=== PATIENT | female | born 1960 | race Caucasian/White ===

== ENCOUNTER → 2017-07-23 14:15 | Outpatient (CLI) | payer OTHER, SELFPAY ==
--- NOTE | 2017-07-23 14:19 | HPBI_ITS ---
MAMMOGRAPHY - BILATERAL SCREENING 3-D VICTORINO SYNTHESIS REASON FOR EXAM: Female, 57 years old. Bilateral Screening 3-D tomosynthesis PERTINENT HISTORY: History of benign breast biopsy.. TECHNIQUE: 2-D mammograms and 3-D Victorino synthesis of the breast (s) were performed. CAD was performed. COMPARISON: 07/21/2016 FINDINGS: The breast composition is heterogeneously dense that can obscure small breast masses. Scattered benign calcifications are seen. No dense spiculated masses or suspicious microcalcifications are identified. No architectural distortion is identified. There is no skin thickening or retraction. There has been no significant change since the prior study. There has been no significant change since the prior study. HPBI/SCREENING MAMM (CAD), BILAT IMPRESSION: No mammographic signs of malignancy. Routine yearly mammograms recommended. ASSESSMENT CATEGORY: BIRADS Category 2: Benign. A letter regarding these results will be sent to the patient by the facility within 30 days. FOLLOW UP RECOMMENDATION: Yearly follow up mammogram recommended. (A) Approximately 10% of breast cancers are not detected by mammography. A normal mammogram should not delay biopsy of a clinically suspicious abnormality. Electronically Signed: Feliberto Villareal MD at 15:44 EDT , Service support ,
== END ==
PROVIDERS: Family Provider Family Medicine Geriatric Medicine; PCP Family Medicine Geriatric Medicine; Visit Provider Obstetrics & Gynecology Gynecology
DX: Z12.31 Encounter for screening mammogram for malignant neoplasm of breast (principal)
CPT/HCPCS: 77063; 77067

== ENCOUNTER → 2017-10-24 15:29 | Outpatient (CLI) | payer OTHER, SELFPAY ==
--- NOTE | 2017-10-24 15:33 | VDUE_ITS ---
Reason For Study: RUE swelling Right Proximal Right jugular vein is spontaneous, widely patent, phasic, with no intraluminal echogenicity noted. Right subclavian vein is spontaneous, widely patent, phasic, with no intraluminal echogenicity noted. Right Lower Arm Right radial vein is compressible. Right ulnar vein is compressible. Right Arm Right axillary vein is spontaneous, patent, phasic, competent, compressible and demonstrates augmentation. Right brachial vein is compressible. Right cephalic vein is compressible. Right basilic vein is compressible. < Interpretation Summary Deep veins of the right upper extremity are patent and compressible segmentally. There is no evidence of deep vein thrombosis. The superficial veins of the right upper extremity, the basilic and cephalic veins, are patent and compressible. There is no evidence of right upper extremity superficial thrombophlebitis involving the veins imaged. Ordering Physician: Delta Rodriguez Referring Physician: Delta Rodriguez Chi Performed By: Tasia Hunt RVT ??? Reason For Study: RUE swelling < Interpretation Summary Ordering Physician: Delta Rodriguez Referring Physician: Delta Rodriguez Chi Performed By: Tasia Hunt RVT
== END ==
PROVIDERS: Family Provider Family Medicine Geriatric Medicine; PCP Family Medicine Geriatric Medicine; Visit Provider Family Medicine Geriatric Medicine
DX: R60.0 Localized edema (principal)
CPT/HCPCS: 93971

== ENCOUNTER → 2018-01-18 11:08 | Outpatient (CLI) | payer OTHER, SELFPAY ==
[2018-01-21 10:52] LABS: Hep C Antibodies <0.1 s/co ratio (0.0-0.9)
== END ==
PROVIDERS: Family Provider Family Medicine Geriatric Medicine; PCP Family Medicine Geriatric Medicine; Visit Provider Family Medicine Geriatric Medicine
DX: Z00.00 Encounter for general adult medical examination without abnormal findings (principal); E55.9 Vitamin D deficiency, unspecified; E78.4 Other hyperlipidemia; Z13.89 Encounter for screening for other disorder
CPT/HCPCS: 86803

== ENCOUNTER 2018-02-02 13:08 | Emergency (ER) | payer OTHER, SELFPAY ==
[2018-02-02 13:11] VITALS: BP 128/104; PULSE 93; RESP 16; TEMP 36.9; O2SAT 94; BMI 22.2
--- NOTE | 2018-02-02 13:22 | RAD_ITS ---
STUDY: X-RAY - LUMBAR SPINE REASON FOR EXAM: Female, 57 years old. Fell off ladder. Pain hematoma on the left back. TECHNIQUE: 5 view(s) of the lumbar spine were obtained. COMPARISON: None FINDINGS: Normal lumbar lordosis. There is no substantial scoliosis. There is a normal alignment of the vertebrae. Normal vertebral bodies and endplates. Normal disc space heights. There is no evidence of acute fracture or loss of vertebral axial height. There is no demonstrated spondylolysis of the pars interarticulares. The soft tissue structures are unremarkable. RAD/L/S Spine Min 4 Views IMPRESSION: Normal x-ray examination of the lumbar spine. Electronically Signed: Feliciano Sosa DO at 13:53 EDT Tel [phone], Service support ,
--- NOTE | 2018-02-02 13:45 | ED.RN ---
pt ambulated to the restroom. gait was slow, but balanced. waiting for x-ray to result. bert rivers rn
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
--- NOTE | 2018-02-02 14:54 | ED.DEP ---
ED Disposition - Plan for ED Patient: Chief Complaint: Fall Instructions: ED Mechanical Fall Prescriptions: Naproxen [Naprosyn] 500 mg PO BID PRN #20 tab Referrals: Delta Rodriguez Chi, MD [Primary Care Provider] -
== END 2018-02-02 16:28 | disposition home or self-care (01) ==
LOC: ED 13:52
PROVIDERS: Emergency Provider Emergency Medicine; Family Provider Family Medicine Geriatric Medicine; PCP Family Medicine Geriatric Medicine
DX: S30.0XXA Contusion of lower back and pelvis, initial encounter (principal); W11.XXXA Fall on and from ladder, initial encounter; Y93.9 Activity, unspecified; Y92.9 Unspecified place or not applicable
CPT/HCPCS: 72110; 99284

== ENCOUNTER → 2018-02-13 16:03 | Outpatient (CLI) | payer OTHER, SELFPAY ==
--- NOTE | 2018-02-13 16:05 | RAD_ITS ---
STUDY: X-RAY - LEFT FOOT CLINICAL: Female, 57 years old. Pain. TECHNIQUE: 3 view(s) of the foot. COMPARISON: None. FINDINGS: Normal talus, calcaneus, and tarsal bones. Normal visualized subtalar, talonavicular, calcaneocuboid, tarsal and tarsometatarsal articulations. Normal metatarsi. Normal metatarsophalangeal joint of the great toe. Normal tibial and fibular sesamoid bones. Normal interphalangeal joint of the great toe. Normal phalanges of the great toe. Normal second through fifth metatarsophalangeal joints. Normal interphalangeal joints and phalanges of the lesser toes. The soft tissue structures are unremarkable. There is no demonstrated fracture. RAD/Foot min 3 Views IMPRESSION: Normal x-ray examination of the foot. Electronically Signed: Edinson Barrett MD at 16:58 EDT , Service support ,
--- NOTE | 2018-02-13 16:10 | RAD_ITS ---
STUDY: X-RAY - RIGHT FOOT CLINICAL: Female, 57 years old. Pain. TECHNIQUE: 3 view(s) of the foot. COMPARISON: None. FINDINGS: Normal talus, calcaneus, and tarsal bones. Normal visualized subtalar, talonavicular, calcaneocuboid, tarsal and tarsometatarsal articulations. Normal metatarsi. Normal metatarsophalangeal joint of the great toe. Normal tibial and fibular sesamoid bones. Normal interphalangeal joint of the great toe. Normal phalanges of the great toe. Normal second through fifth metatarsophalangeal joints. Normal interphalangeal joints and phalanges of the lesser toes. The soft tissue structures are unremarkable. There is no demonstrated fracture. RAD/Foot min 3 Views IMPRESSION: Normal x-ray examination of the foot. Electronically Signed: Edinson Barrett MD at 15:56 EDT , Service support ,
== END ==
PROVIDERS: Family Provider Family Medicine Geriatric Medicine; PCP Family Medicine Geriatric Medicine; Referring Provider Family Medicine Geriatric Medicine; Visit Provider Family Medicine Geriatric Medicine
DX: M25.572 Pain in left ankle and joints of left foot (principal); M25.571 Pain in right ankle and joints of right foot
CPT/HCPCS: 73630

== ENCOUNTER → 2018-03-19 16:34 | Outpatient (CLI) | payer OTHER, SELFPAY | PROVIDERS: Family Provider Family Medicine Geriatric Medicine; PCP Family Medicine Geriatric Medicine; Referring Provider Family Medicine Geriatric Medicine; Visit Provider Family Medicine Geriatric Medicine | DX: R68.83 Chills (without fever) (principal) | CPT/HCPCS: 87633 ==

== ENCOUNTER → 2018-09-13 | Outpatient (CLI) | payer OTHER, SELFPAY ==
--- NOTE | 2018-09-12 17:25 | BI_ITS ---
MAMMOGRAPHY - BILATERAL SCREENING REASON FOR EXAM: Female, 58 years old. Routine annual screening examination. PERTINENT HISTORY: Non-contributory. Remote left excisional breast biopsy. TECHNIQUE: Digital bilateral breast gregorio (3D mammographic acquisition) in the CC and MLO projections. 2-D mediolateral oblique (MLO) and craniocaudad (CC) views of both breasts were obtained. CAD: Full Field Digital Mammography with Computer Added Detection was performed. COMPARISON: Comparison is made with prior study dated July 23, 2017 and July 21, 2016. FINDINGS: Breast Composition: The breasts are heterogeneously dense, which may obscure small masses. There are no dominant masses or suspicious calcifications. Stable macrocalcifications in both breasts. No other significant abnormalities are identified. There has been no significant change since the prior study. BI/SCREENING MAMM (CAD), BILAT IMPRESSION: Stable bilateral screening mammogram. Yearly follow-up mammogram recommended. (A) ASSESSMENT CATEGORY: BIRADS Category 2: Benign. A letter regarding these results will be sent to the patient by the facility within 30 days. Approximately 10% of breast cancers are not detected by mammography. A normal mammogram should not delay biopsy of a clinically suspicious abnormality. [id number] Electronically Signed: Brijesh Barney, at 8:51 EDT , Service support ,
== END | disposition home or self-care (01) ==
LOC: OPBI 07:33
PROVIDERS: Family Provider Family Medicine Geriatric Medicine; PCP Family Medicine Geriatric Medicine; Referring Provider Obstetrics & Gynecology Gynecology; Visit Provider Obstetrics & Gynecology Gynecology
DX: Z12.31 Encounter for screening mammogram for malignant neoplasm of breast (principal)
CPT/HCPCS: 77063; 77067

== ENCOUNTER → 2018-10-14 | Outpatient (CLI) | payer OTHER, SELFPAY | END | disposition home or self-care (01) | LOC: PSN 16:36 | PROVIDERS: Family Provider Family Medicine Geriatric Medicine; PCP Family Medicine Geriatric Medicine; Referring Provider Family Medicine Geriatric Medicine; Visit Provider Family Medicine Geriatric Medicine | DX: R68.83 Chills (without fever) (principal) | CPT/HCPCS: 87633 ==

== ENCOUNTER → 2018-10-24 | Outpatient (CLI) | payer OTHER, SELFPAY ==
[2018-10-24 17:22] LABS: Absolute Neutrophil Count 4.6 X10^3/uL (2.0-7.7); Basophil# 0.02 X10^3/uL; Basophil% 0.3 % (0-1); Eosinophil# 0.09 X10^3/uL; Eosinophils% 1.2 % (0-5); Hematocrit 41.3 % (37-47); Hemoglobin 13.7 g/dl (12.0-15.0); Lymphocyte % 31.3 % (19-41); Mean Corp Hgb Conc 33.2 g/gl (32-36); Mean Corpuscular Hgb 28.8 pg (27.0-32.0); Mean Corpuscular Volume 86.9 fL (81-99); Mean Platelet Vol. 9.5 fl (6.2-12.0); Monocyte# 0.46 X10^3/uL; Neutrophil # 4.64 X10^3/uL (2.7-7.7); Neutrophil % 60.3 % (47-70); Platelet Count 329 K/mm3 (150-450); RBC Distribution Width SD 41.4 fl (35.1-43.9); Red Blood Count 4.75 M/mm3 (4.2-5.4); White Blood Count 7.7 K/mm3 (4.4-11.0)
[2018-10-24 17:24] LABS: POSITIVE COUNT NO; POSITIVE DIFFERENTIAL NO; POSITIVE MORPHOLOGY NO
[2018-10-24 17:46] LABS: Anion Gap 8 (5-15); BUN 18 mg/dL (7-18); BUN/Creat Ratio 22.6 RATIO (10-20); Calcium,Total 8.7 mg/dL (8.5-10.1); Chloride 103 mmol/L (98-107); EST Glomerular Filtration Rate 79 mL/min (>60); Est Glom Filt Rate - Afr Amer 96 mL/min (>60); Glucose 128 mg/dL (74-106); Potassium 3.4 mmol/L (3.5-5.1); Sodium Level 140 mmol/L (136-145); Thyroid Stim Hormone (TSH) 0.74 uIU/mL (0.358-3.74)
== END | disposition home or self-care (01) ==
LOC: POLAB3 15:52
PROVIDERS: Family Provider Family Medicine Geriatric Medicine; PCP Family Medicine Geriatric Medicine; Visit Provider Family Medicine Geriatric Medicine
DX: R53.83 Other fatigue (principal)
CPT/HCPCS: 36415; 80048; 84443; 85025

== ENCOUNTER → 2018-11-02 | Outpatient (CLI) | payer OTHER, SELFPAY ==
[2018-11-02 12:32] LABS: Anion Gap 2 (5-15); BUN 17 mg/dL (7-18); BUN/Creat Ratio 25.1 RATIO (10-20); Calcium,Total 9.3 mg/dL (8.5-10.1); Chloride 104 mmol/L (98-107); Creatinine, Serum 0.68 mg/dL (0.55-1.02); EST Glomerular Filtration Rate 96 mL/min (>60); Est Glom Filt Rate - Afr Amer 116 mL/min (>60); Glucose 91 mg/dL (74-106); Potassium 3.8 mmol/L (3.5-5.1); Sodium Level 137 mmol/L (136-145)
== END | disposition home or self-care (01) ==
LOC: LAB.FUTURE 12:02
PROVIDERS: Family Provider Family Medicine Geriatric Medicine; PCP Family Medicine Geriatric Medicine; Referring Provider Family Medicine Geriatric Medicine; Visit Provider Family Medicine Geriatric Medicine
DX: E87.6 Hypokalemia (principal)
CPT/HCPCS: 36415; 80048

== ENCOUNTER → 2019-09-16 14:24 | Outpatient (CLI) | payer OTHER, SELFPAY ==
--- NOTE | 2019-09-16 14:27 | BI_ITS ---
MAMMOGRAPHY - BILATERAL SCREENING REASON FOR EXAM: Female, 59 years old. Routine annual screening examination. PERTINENT HISTORY: Non-contributory. Remote left excisional breast biopsy. TECHNIQUE: Digital bilateral breast victorino (3D mammographic acquisition) in the CC and MLO projections. 2-D mediolateral oblique (MLO) and craniocaudad (CC) views of both breasts were obtained. CAD: Full Field Digital Mammography with Computer Added Detection was performed. COMPARISON: Comparison is made with prior examination dated September 12, 2018 and July 23, 2017. FINDINGS: Breast Composition: The breasts are heterogeneously dense, which may obscure small masses. There are no dominant masses or suspicious calcifications. I suspect a 1.2 cm well-defined nodule in the lateral probable upper outer quadrant of the right breast. Correlation with ultrasound is recommended for further evaluation. No other significant abnormalities are identified. BI/SCREEN MAMM (CAD) W/VICTORINO BILAT IMPRESSION: I suspect a 1.2 cm well-defined nodule in the lateral most likely upper outer quadrant of the right breast as described. Correlation with ultrasound is recommended. ASSESSMENT CATEGORY: BIRADS Category 0: Incomplete. Need additional imaging evaluation. A letter regarding these results will be sent to the patient by the facility within 30 days. Approximately 10% of breast cancers are not detected by mammography. A normal mammogram should not delay biopsy of a clinically suspicious abnormality. [id number] Electronically Signed: Brijesh Barney, at 9:21 EDT , Service support ,
== END ==
PROVIDERS: PCP Family Medicine Geriatric Medicine; Referring Provider Obstetrics & Gynecology Gynecology; Visit Provider Obstetrics & Gynecology Gynecology
DX: Z12.31 Encounter for screening mammogram for malignant neoplasm of breast (principal)
CPT/HCPCS: 77063; 77067

== ENCOUNTER → 2019-09-25 13:17 | Outpatient (CLI) | payer OTHER, SELFPAY ==
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
== END ==
PROVIDERS: PCP Family Medicine Geriatric Medicine; Referring Provider Obstetrics & Gynecology Gynecology; Visit Provider Obstetrics & Gynecology Gynecology
DX: R92.8 Other abnormal and inconclusive findings on diagnostic imaging of breast (principal)
CPT/HCPCS: 76642

== ENCOUNTER 2020-05-29 18:32 | Emergency (ER) | payer OTHER, SELFPAY ==
[2020-05-29 18:33] VITALS: BP 132/98; PULSE 94; RESP 18; TEMP 36.7; O2SAT 97; BMI 25.3
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
[2020-05-29] MEDS: HYDROmorphone 1 MG/ML Syringe IV (18:56)
[2020-05-29] MEDS: Ondansetron 4 MG/2 ML Vial IV (18:56)
[2020-05-29 19:05] LABS: Absolute Lymphocyte Count 3.02 X10^3/uL (0.83-4.51); Absolute Neutrophil Count 3.8 X10^3/uL (2.0-7.7); Basophil# 0.04 X10^3/uL; Basophil% 0.5 % (0-1); Eosinophil# 0.14 X10^3/uL; Eosinophils% 1.9 % (0-5); Hemoglobin 13.2 g/dL (12.0-15.0); Lymphocyte # 3.02 X10^3/ul (4.0); Lymphocyte % 40.3 % (19-41); Mean Corp Hgb Conc 32.2 g/dL (32-36); Mean Corpuscular Hgb 28.2 pg (27.0-32.0); Mean Corpuscular Volume 87.6 fL (81-99); Mean Platelet Vol. 8.9 fl (6.2-12.0); Monocyte# 0.38 X10^3/uL; Monocyte% 5.1 % (0-10); NRBC Flagged by Analyzer 0 % (0-5); Neutrophil # 3.83 X10^3/uL (2.7-7.7); Neutrophil % 51.1 % (47-70); Platelet Count 297 K/mm3 (150-450); RBC Distribution Width CV 12.8 % (11.6-14.6); RBC Distribution Width SD 40.9 fl (35.1-43.9); Red Blood Count 4.68 M/mm3 (4.2-5.4); White Blood Count 7.5 K/mm3 (4.4-11.0)
[2020-05-29 19:15] LABS: International Normalized Ratio 0.9; Prothrombin Time (Protime)PT. 11.9 SECONDS (11.7-14.9)
[2020-05-29 19:16] LABS: Partial Thromboplast Time 24.1 Seconds (24.1-36.2)
[2020-05-29 19:22] LABS: ALB/GLOB Ratio 1.1 RATIO (0.9-2.4); AST(SGOT) 48 U/L (15-37); Alanine Aminotransfer ALT/SGPT 46 U/L (13-56); Albumin, Serum 3.6 g/dL (3.2-5.0); Alkaline Phosphatase 74 U/L (45-117); Anion Gap 6 (5-15); BUN 15 mg/dL (7-18); BUN/Creat Ratio 23.2 RATIO (10-20); Calcium,Total 8.5 mg/dL (8.5-10.1); Chloride 105 mmol/L (98-107); Creatinine, Serum 0.65 mg/dL (0.55-1.02); EST Glomerular Filtration Rate 100 mL/min (>60); Est Glom Filt Rate - Afr Amer 121 mL/min (>60); Estimated Creatinine Clearance 84.74 ml/min; Globulin 3.2 g/dL (2.2-4.2); Glucose 130 mg/dL (74-106); Lipase 114 U/L (73-393); Potassium 3.3 mmol/L (3.5-5.1); Protein, Total 6.8 g/dL (6.4-8.2); Sodium Level 140 mmol/L (136-145)
[2020-05-29] MEDS: Diphth,Pertuss(Acell),Tet Vac 0.5 ML Vial IM (19:37)
[2020-05-29 19:50] VITALS: BP 143/91; PULSE 106; RESP 18; O2SAT 94
[2020-05-29 20:00] VITALS: BP 146/93; PULSE 106; RESP 19; O2SAT 95
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
== END 2020-05-29 21:27 | disposition home or self-care (01) ==
LOC: ED 19:59
PROVIDERS: Emergency Provider Emergency Medicine; PCP Family Medicine Geriatric Medicine
DX: R07.89 Other chest pain (principal); S60.222A Contusion of left hand, initial encounter; S81.812A Laceration without foreign body, left lower leg, initial encounter; V89.2XXA Person injured in unspecified motor-vehicle accident, traffic, initial encounter; Y93.9 Activity, unspecified; Y92.9 Unspecified place or not applicable; Z87.891 Personal history of nicotine dependence
CPT/HCPCS: 70450; 71260; 72125; 73130; 74177; 80053; 83690; 84484; 85025; 85610; 85730; 90715; 93005; 96361; 96374; 96375; 99285; J7030; Q9967; A4216; J2405

== ENCOUNTER 2020-06-25 10:30 | Outpatient (RCR) | payer OTHER, SELFPAY ==
[2020-06-18 09:14] VITALS: BP 120/78; PULSE 83; RESP 18; TEMP 36.5; BMI 22.8
[2020-06-18 11:20] VITALS: BP 120/72
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
[2020-06-25 10:52] VITALS: BP 117/76; PULSE 91; RESP 16; TEMP 36.6; BMI 22.8
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
== END 2020-06-27 23:59 ==
LOC: WC 10:30
PROVIDERS: PCP Family Medicine Geriatric Medicine; Referring Provider Family Medicine Geriatric Medicine; Visit Provider Family Medicine
DX: L97.812 Non-pressure chronic ulcer of other part of right lower leg with fat layer exposed (principal); S80.811S Abrasion, right lower leg, sequela; V89.2XXS Person injured in unspecified motor-vehicle accident, traffic, sequela; I87.2 Venous insufficiency (chronic) (peripheral); Z79.1 Long term (current) use of non-steroidal anti-inflammatories (NSAID)
CPT/HCPCS: 11042; 99203; G0463

== ENCOUNTER 2020-07-16 10:30 | Outpatient (RCR) | payer OTHER, SELFPAY ==
[2020-06-28 00:38] VITALS: BP 117/76; PULSE 91; RESP 16; TEMP 36.6
[2020-07-02 10:39] VITALS: BP 130/80; PULSE 88; RESP 16; TEMP 36.7; BMI 22.8
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
[2020-07-09 10:53] VITALS: BP 136/82; PULSE 81; RESP 18; TEMP 36.1; BMI 22.8
[2020-07-09 11:33] VITALS: BP 136/82
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
[2020-07-16 10:44] VITALS: BP 121/71; PULSE 85; RESP 16; TEMP 36.4; BMI 22.8
--- NOTE | 2020-07-16 10:46 | WC ---
apligraph left intact
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
== END 2020-07-28 23:59 ==
LOC: WC 10:30
PROVIDERS: PCP Family Medicine Geriatric Medicine; Referring Provider Family Medicine Geriatric Medicine; Visit Provider Family Medicine
DX: I87.311 Chronic venous hypertension (idiopathic) with ulcer of right lower extremity (principal); L97.812 Non-pressure chronic ulcer of other part of right lower leg with fat layer exposed; S80.811S Abrasion, right lower leg, sequela; V89.2XXS Person injured in unspecified motor-vehicle accident, traffic, sequela; I87.2 Venous insufficiency (chronic) (peripheral); Z79.1 Long term (current) use of non-steroidal anti-inflammatories (NSAID)
CPT/HCPCS: 11042; 15271; Q4101

== ENCOUNTER 2020-08-13 10:30 | Outpatient (RCR) | payer OTHER, SELFPAY ==
[2020-07-29 00:44] VITALS: BP 121/71; PULSE 85; RESP 16; TEMP 36.4
[2020-07-30 10:29] VITALS: BP 122/80; PULSE 88; TEMP 36.1; BMI 22.8
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
[2020-08-13 10:51] VITALS: BP 149/94; PULSE 85; RESP 18; TEMP 36.8; BMI 22.8
--- NOTE | 2020-08-13 11:27 | WC ---
healed photo taken adaptic and gauze applied secured with tape
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
== END 2020-08-13 11:32 | disposition home or self-care (01) ==
LOC: WC 10:30
PROVIDERS: PCP Family Medicine Geriatric Medicine; Referring Provider Family Medicine Geriatric Medicine; Visit Provider Family Medicine
DX: I87.311 Chronic venous hypertension (idiopathic) with ulcer of right lower extremity (principal); L97.812 Non-pressure chronic ulcer of other part of right lower leg with fat layer exposed; I87.2 Venous insufficiency (chronic) (peripheral); S80.811S Abrasion, right lower leg, sequela; V89.2XXS Person injured in unspecified motor-vehicle accident, traffic, sequela; Z79.1 Long term (current) use of non-steroidal anti-inflammatories (NSAID)
CPT/HCPCS: 15271; 99213; Q4101; G0463

== ENCOUNTER → 2020-10-21 10:19 | Outpatient (CLI) | payer OTHER, SELFPAY ==
--- NOTE | 2020-10-21 10:25 | BI_ITS ---
MAMMOGRAPHY - BILATERAL SCREENING 3-D TOMOSYNTHESIS REASON FOR EXAM: Female, 60 years old. SCREENING PERTINENT HISTORY: No significant family history. TECHNIQUE: 2-D mammograms and 3-D Tomosynthesis of the breast (s) were performed. CAD was performed. COMPARISON: 09/16/2019 FINDINGS: The breast composition is of heterogeneous fibroglandular tissue Scattered benign calcifications are seen bilaterally. No dense spiculated masses or suspicious microcalcifications are identified. No architectural distortion is identified. There is no skin thickening or nipple retraction. There has been no significant change since the prior study of 09/16/2019. BI/SCRN MAMM (CAD)W/VICTORINO BILAT IMPRESSION: No mammographic signs of malignancy. Routine yearly mammograms recommended. ASSESSMENT CATEGORY: BIRADS Category 1: Negative. A letter regarding these results will be sent to the patient by the facility within 30 days. FOLLOW UP RECOMMENDATION: Yearly follow up mammogram recommended. (A) Approximately 10% of breast cancers are not detected by mammography. A normal mammogram should not delay biopsy of a clinically suspicious abnormality. Electronically Signed: Cade Castañeda, at 12:08 EDT Tel , Service support ,
== END ==
PROVIDERS: PCP Family Medicine Geriatric Medicine; Referring Provider Obstetrics & Gynecology Gynecology; Visit Provider Obstetrics & Gynecology Gynecology
DX: Z12.31 Encounter for screening mammogram for malignant neoplasm of breast (principal)
CPT/HCPCS: 77063; 77067

== ENCOUNTER → 2020-11-08 15:17 | Outpatient (CLI) | payer OTHER, SELFPAY ==
--- NOTE | 2020-11-08 16:45 | RAD_ITS ---
STUDY: X-RAY - ABDOMEN/PELVIS REASON FOR EXAM: Female, 60 years old. Diarrhea. TECHNIQUE: AP supine and upright views of the abdomen and pelvis. COMPARISON: None. FINDINGS: Normal visualized lung bases. There is an unremarkable bowel gas pattern. No small bowel dilatation or evidence of distended colon. There is no demonstrated free abdominal air. The visualized liver, spleen and kidneys are grossly normal in size and morphology. Normal soft tissue structures. Normal visualized osseous structures. RAD/Abd Inc Decub and/or Erect IMPRESSION: Normal x-ray examination of the abdomen and pelvis. Electronically Signed: Feliciano Sosa DO at 16:50 EDT Tel [phone], Service support ,
[2020-11-08 17:06] LABS: Absolute Lymphocyte Count 2.04 X10^3/uL (0.83-4.51); Basophil# 0.02 X10^3/uL; Basophil% 0.4 % (0-1); Eosinophil# 0.05 X10^3/uL; Eosinophils% 0.9 % (0-5); Hematocrit 45.1 % (37-47); Hemoglobin 14.4 g/dL (12.0-15.0); Lymphocyte # 2.04 X10^3/ul (0.83-4.51); Lymphocyte % 37.2 % (19-41); Mean Corp Hgb Conc 31.9 g/dL (32-36); Mean Corpuscular Hgb 28.2 pg (27.0-32.0); Mean Corpuscular Volume 88.4 fL (81-99); Mean Platelet Vol. 9.8 fl (6.2-12.0); Monocyte# 0.34 X10^3/uL; Monocyte% 6.2 % (0-10); NRBC Flagged by Analyzer 0 % (0-5); Neutrophil # 3.01 X10^3/uL (2.7-7.7); Neutrophil % 54.9 % (47-70); Platelet Count 316 K/mm3 (150-450); RBC Distribution Width CV 12.9 % (11.6-14.6); RBC Distribution Width SD 42.2 fl (35.1-43.9); White Blood Count 5.5 K/mm3 (4.4-11.0)
[2020-11-08 17:19] LABS: Anion Gap 5 (5-15); BUN 8 mg/dL (7-18); BUN/Creat Ratio 13.4 RATIO (10-20); Calcium,Total 9.2 mg/dL (8.5-10.1); Chloride 104 mmol/L (98-107); EST Glomerular Filtration Rate 110 mL/min (>60); Est Glom Filt Rate - Afr Amer 133 mL/min (>60); Glucose 85 mg/dL (74-106); Potassium 3.8 mmol/L (3.5-5.1); Sodium Level 139 mmol/L (136-145)
== END ==
LOC: POLAB3 15:18 → RAD 16:43
PROVIDERS: PCP Family Medicine Geriatric Medicine; Referring Provider Family Medicine Geriatric Medicine; Visit Provider Family Medicine Geriatric Medicine
DX: R19.7 Diarrhea, unspecified (principal); R53.83 Other fatigue
CPT/HCPCS: 36415; 74019; 80048; 85025

== ENCOUNTER → 2020-11-09 09:42 | Outpatient (CLI) | payer OTHER, SELFPAY | PROVIDERS: PCP Family Medicine Geriatric Medicine; Referring Provider Family Medicine Geriatric Medicine; Visit Provider Family Medicine Geriatric Medicine | DX: R06.89 Other abnormalities of breathing (principal) | CPT/HCPCS: 87426; C9803 ==

== ENCOUNTER → 2021-01-07 08:51 | Outpatient (CLI) | payer OTHER, SELFPAY | PROVIDERS: PCP Family Medicine Geriatric Medicine; Referring Provider Family Medicine Geriatric Medicine; Visit Provider Family Medicine Geriatric Medicine | DX: R68.83 Chills (without fever) (principal) | CPT/HCPCS: 87635; C9803; U0005; U0003 ==

== ENCOUNTER → 2021-01-28 | Outpatient (CLI) | payer OTHER, SELFPAY ==
--- NOTE | 2021-01-28 09:30 | LIP_PTH ---
PATIENT: LARS CASILLAS LOC: [facility] U#:[id number] AGE/SX: 60/F ROOM: RE01/28/[address]: Dr. Graciela Garner MD : 1960 BED: DIS: 01/28/2021 SPEC #: [id number] RECD: 01/28/21 10:56 STATUS: JAS REGina #: [id number] SHIRLEY: 01/28/21 09:[address]: Graciela Garner DEPT: SURGICAL PATHOLOGY RECD BY: Carole Lu ENTERED: 01/28/21 12:48 SP TYPE: LIPOMA OTHR DR: Dr. Delta Rodriguez MD Tissues: Soft tissues, NOS Procedures: Surgery Specimen Level III HEADER OPERATION: Excision of lipoma of back PRE-OP DIAGNOSIS: Lipoma on back TISSUE SUBMITTED: Lipoma on back MICROSCOPIC DIAGNOSIS Soft tissue mass of back, excision: Mature adipose tissue consistent with lipoma. AM:dee 01/31/2021 MICROSCOPIC DESCRIPTION Slides are reviewed. GROSS DESCRIPTION Received in fixative is one container labeled with the patient's name and designated lipoma on back. The specimen consists of an irregular piece of adipose tissue measuring 6.5 x 5 x 2 cm. The external surface is inked. Sections reveal yellow adipose cut surfaces without areas of hemorrhage, necrosis or cystic degeneration. Net Development Manager sections are submitted in four cassettes. / SJ:dee 01/28/21 TC:1 CPT: 11965
== END | disposition home or self-care (01) ==
LOC: LABSPEC 11:17
PROVIDERS: PCP Family Medicine Geriatric Medicine; Referring Provider Surgery; Visit Provider Surgery
DX: D17.1 Benign lipomatous neoplasm of skin and subcutaneous tissue of trunk (principal)
CPT/HCPCS: 88304

== ENCOUNTER 2021-11-23 15:13 | Outpatient (CLI) | payer OTHER, SELFPAY ==
--- NOTE | 2021-11-23 15:16 | BI_ITS ---
MAMMOGRAPHY - BILATERAL SCREENING REASON FOR EXAM: Female, 61 years old. Routine annual screening examination. PERTINENT HISTORY: Non-contributory. Remote left excisional breast biopsy. TECHNIQUE: Digital bilateral breast victorino (3D mammographic acquisition) in the CC and MLO projections. 2-D mediolateral oblique (MLO) and craniocaudad (CC) views of both breasts were obtained. CAD: Full Field Digital Mammography with Computer Added Detection was performed. COMPARISON: Comparison is made with prior study dated 10/21/2020 and 09/16/2019 FINDINGS: Breast Composition: The breasts are heterogeneously dense, which may obscure small masses. There are no dominant masses or suspicious calcifications. No other significant abnormalities are identified. There has been no significant change since the prior study. BI/SCRN MAMM (CAD)W/VICTORINO BILAT IMPRESSION: Stable bilateral screening mammogram. Yearly follow-up mammogram recommended. (A) ASSESSMENT CATEGORY: BIRADS Category 1: Negative. A letter regarding these results will be sent to the patient by the facility within 30 days. Approximately 10% of breast cancers are not detected by mammography. A normal mammogram should not delay biopsy of a clinically suspicious abnormality. [id number] Electronically Signed: Brijesh Barney MD at 8:12 EDT ,
== END 2021-11-23 23:59 | disposition home or self-care (01) ==
LOC: OPBI 15:14
PROVIDERS: PCP Family Medicine Geriatric Medicine; Visit Provider Obstetrics & Gynecology Gynecology
DX: Z12.31 Encounter for screening mammogram for malignant neoplasm of breast (principal)
CPT/HCPCS: 77063; 77067

== ENCOUNTER → 2022-03-02 | Outpatient (CLI) | payer OTHER, SELFPAY ==
[2022-03-02 09:19] LABS: Hematocrit 43.5 % (37-47); Hemoglobin 14.2 g/dL (12.0-15.0); Mean Corp Hgb Conc 32.6 g/dL (32-36); Mean Corpuscular Hgb 28.7 pg (27.0-32.0); Mean Corpuscular Volume 87.9 fL (81-99); Mean Platelet Vol. 9.9 fl (6.2-12.0); Platelet Count 277 K/mm3 (150-450); RBC Distribution Width CV 12.9 % (11.6-14.6); RBC Distribution Width SD 41.5 fl (35.1-43.9); Red Blood Count 4.95 M/mm3 (4.2-5.4); White Blood Count 4.5 K/mm3 (4.4-11.0)
[2022-03-02 09:56] LABS: Anion Gap 6 (5-15); BUN 15 mg/dL (7-18); BUN/Creat Ratio 26.6 RATIO (10-20); Chloride 104 mmol/L (98-107); Creatinine, Serum 0.56 mg/dL (0.55-1.02); EST Glomerular Filtration Rate 117 mL/min (>60); Est Glom Filt Rate - Afr Amer 141 mL/min (>60); Glucose 85 mg/dL (74-106); Potassium 3.6 mmol/L (3.5-5.1); Sodium Level 138 mmol/L (136-145)
== END | disposition home or self-care (01) ==
PROVIDERS: PCP Family Medicine Geriatric Medicine; Referring Provider Surgery; Visit Provider Surgery
DX: Z01.810 Encounter for preprocedural cardiovascular examination (principal); Z01.812 Encounter for preprocedural laboratory examination
CPT/HCPCS: 36415; 80048; 85027; 93005

== ENCOUNTER → 2022-06-06 | Outpatient (CLI) | payer OTHER, SELFPAY | END | disposition home or self-care (01) | LOC: PSN 12:42 | PROVIDERS: PCP Family Medicine Geriatric Medicine; Referring Provider Family Medicine Geriatric Medicine; Visit Provider Family Medicine Geriatric Medicine | DX: R68.83 Chills (without fever) (principal); Z20.822 Contact with and (suspected) exposure to COVID-19 | CPT/HCPCS: 87635; 87804; 87807; C9803; U0003; U0005 ==

== ENCOUNTER → 2022-08-10 | Outpatient (CLI) | payer OTHER, SELFPAY ==
--- NOTE | 2022-08-10 13:46 | EKG12_ITS ---
Test Reason : PRE OP Blood Pressure : / mmHG Vent. Rate : 072 BPM Atrial Rate : 073 BPM P-R Int : 134 ms QRS Dur : 074 ms QT Int : 400 ms P-R-T Axes : 070 079 076 degrees QTc Int : 438 ms Normal sinus rhythm Normal ECG Confirmed by SHADIA BERRIOS ([id number]), movie editor FREIDA SHARIF ([id number]) on 08/15/2022 7:38:38 AM Referred By: SIERRA Confirmed By:SHADIA BERRIOS
== END | disposition home or self-care (01) ==
PROVIDERS: PCP Family Medicine Geriatric Medicine; Visit Provider Surgery
DX: Z01.810 Encounter for preprocedural cardiovascular examination (principal); Z01.812 Encounter for preprocedural laboratory examination
CPT/HCPCS: 93005

== ENCOUNTER → 2022-12-14 | Outpatient (CLI) | payer OTHER, SELFPAY ==
--- NOTE | 2022-12-14 13:16 | BI_ITS ---
MAMMOGRAPHY - BILATERAL SCREENING REASON FOR EXAM: Female, 62 years old. Routine annual screening examination. PERTINENT HISTORY: Non-contributory. Remote left excisional breast biopsy. TECHNIQUE: Digital bilateral breast victorino (3D mammographic acquisition) in the CC and MLO projections. 2-D mediolateral oblique (MLO) and craniocaudad (CC) views of both breasts were obtained. CAD: Full Field Digital Mammography with Computer Added Detection was performed. COMPARISON: Comparison is made with prior study dated November 23, 2021 and October 21, 2000. FINDINGS: Breast Composition: The breasts are heterogeneously dense, which may obscure small masses. There are no dominant masses or suspicious calcifications. Focal calcification is seen in the upper-outer quadrant of the right breast. No other significant abnormalities are identified. There has been no significant change since the prior study. BI/SCRN MAMM (CAD)W/VICTORINO BILAT IMPRESSION: Stable bilateral screening mammogram. Yearly follow-up mammogram recommended. (A) ASSESSMENT CATEGORY: BIRADS Category 2: Benign. A letter regarding these results will be sent to the patient by the facility within 30 days. Approximately 10% of breast cancers are not detected by mammography. A normal mammogram should not delay biopsy of a clinically suspicious abnormality. [id number] Electronically Signed: Brijesh Barney MD at 8:21 EDT ,
--- NOTE | 2022-12-14 13:18 | BD_ITS ---
STUDY: DUAL ENERGY X-RAY ABSORPTIOMETRY / DXA REASON FOR EXAM: Female, 62 years old. V76.12ScreeningBONE DENSITY REASON FOR EXAM TECHNIQUE: Bone Mineral Density (BMD) measurements of lumbar spine and bilateral hips were obtained. COMPARISON: None. FINDINGS: Lumbar Spine (L1-L4): g/cm2 (0.725) / T-score (-2.9) / Z-score (-1.5) Findings are suggestive of osteoporosis with a high fracture risk. Left Femur Total: g/cm2 (0.644) / T-score (-2.4) / Z-score (-1.5) Left Femoral Neck: g/cm2 (0.541) / T-score (-2.8) / Z-score (-1.5) Right Femur Total: g/cm2 (0.656) / T-score (-2.3) / Z-score (-1.4) Right Femoral Neck: g/cm2 (0.538) / T-score (-2.8) / Z-score (-1.5) BD/Dexa Bone Density Study IMPRESSION: The patient is considered osteoporotic as outlined below according to World Brock Organization (WHO) criteria with a high fracture risk. Reference Information: The T-score is the number of standard deviations above or below the standard which is normal for young adults at their peak bone mineral density. The World Health Organization (WHO) interprets the T-scores as follows: Above -1 Normal bone density Between -1 and -2.5 Osteopenia Equal to / or below -2.5 Osteoporosis As a practical clinical guideline, osteopenia may be graded as follows: Mild -1 through -1.5 Moderate -1.6 through -2.0 Severe -2.1 through -2.4 The Z-score is the number of standard deviations above or below age-matched controls. A Z-score of less than -1.5 would be considered abnormal. References: 1. NIH Osteoporosis and Related Bone Diseases www osteo.org 2. International Society for Clinical Densitometry www iscd.org 3. National Osteoporosis Foundation www nof.org Electronically Signed: Brijesh Barney MD at 12:31 EDT ,
== END | disposition home or self-care (01) ==
LOC: OPBD 13:13
PROVIDERS: PCP Family Medicine Geriatric Medicine; Referring Provider Obstetrics & Gynecology Gynecology; Visit Provider Obstetrics & Gynecology Gynecology
DX: Z12.31 Encounter for screening mammogram for malignant neoplasm of breast (principal); Z13.820 Encounter for screening for osteoporosis
CPT/HCPCS: 77063; 77067; 77080

== ENCOUNTER 2023-06-13 15:01 | Outpatient (CLI) | payer OTHER, SELFPAY ==
[2023-06-13 15:18] VITALS: BP 131/63; PULSE 73; RESP 16; TEMP 36.7; O2SAT 97; BMI 23.2
[2023-06-13] MEDS: 0.9% Normal Saline (1000mL) 1,000 ML 999 ML IV (15:29)
[2023-06-13 15:53] LABS: Absolute Lymphocyte Count 2.33 X10^3/uL (0.83-4.51); Absolute Neutrophil Count 2.8 X10^3/uL (2.0-7.7); Basophil# 0.04 X10^3/uL; Basophil% 0.7 % (0-1); Eosinophil# 0.11 X10^3/uL; Hemoglobin 12.7 g/dL (12.0-15.0); Lymphocyte # 2.33 X10^3/ul (0.83-4.51); Lymphocyte % 41.8 % (19-41); Mean Corp Hgb Conc 31.8 g/dL (32-36); Mean Corpuscular Hgb 27.8 pg (27.0-32.0); Mean Corpuscular Volume 87.5 fL (81-99); Mean Platelet Vol. 9.7 fl (6.2-12.0); Monocyte# 0.29 X10^3/uL; Monocyte% 5.2 % (0-10); NRBC Flagged by Analyzer 0 % (0-5); Neutrophil # 2.78 X10^3/uL (2.7-7.7); Neutrophil % 49.9 % (47-70); Platelet Count 299 K/mm3 (150-450); RBC Distribution Width SD 41.1 fl (35.1-43.9); Red Blood Count 4.57 M/mm3 (4.2-5.4); White Blood Count 5.6 K/mm3 (4.4-11.0)
[2023-06-13 15:56] LABS: Anion Gap 5 (5-15); BUN 17 mg/dL (7-18); BUN/Creat Ratio 25.4 RATIO (10-20); Calcium,Total 9.1 mg/dL (8.5-10.1); Chloride 108 mmol/L (98-107); Creatinine, Serum 0.67 mg/dL (0.55-1.02); EST Glomerular Filtration Rate 95 mL/min (>60); Est Glom Filt Rate - Afr Amer 115 mL/min (>60); Estimated Creatinine Clearance 63.34 ml/min; Glucose 147 mg/dL (74-106); Potassium 3.9 mmol/L (3.5-5.1); Sodium Level 141 mmol/L (136-145)
[2023-06-13 16:44] VITALS: BP 127/80; PULSE 87; RESP 16; TEMP 36.2; O2SAT 100
--- OUTSIDE RECORDS SUMMARY | 2023-06-13 18:38 | XMS RPT_ITS | CCD ---
Author Name Unknown Address [email or web address] [place] [address] Organization [facility] Care Team Providers Care Water Gas Operator Name Role Phone SAMEER GOODWIN, DR FREEMAN Primary Care Unavailable ANDREY GOODWIN, PILO Attending Unavailable Problems Problem Classification Problem Date Documented Da te Episodic/Chronic Other screening for suspected conditions (not mental disorders or infectious disease) (2 sources) Encounter for screening for malignant neoplasm of cervix; Translations: [Encounter for screening for malignant neoplasm of cervix] Onset: 11-14-2022 Episodic Results Test Name Value Interpretation Reference Range Facil ity Encounters Encounter Date Encounter Type Care Provider Facility Start: 11-14-2022 End: 11-19-[address] LYDIA ESTRELLA MD Facility:B Start: 11-14-2022 End: 11-19-2022 Encounter for gynecological examination (general) (routine) without abnormal findings PILO BALDERAS MD Facility:B Start: 07-30-2018 End: 07-31-2018 Patient encounter procedure [facility] Payers Date Payer Category Payer Private Health Insurance [id number] 1960 Unknown [id number] Summary Purpose Family History No Family History Records FoundNo Family History Records Found Advance Directives No Advanced Directives Records FoundNo Advanced Directives Records Found Additional Source Comments INFORMATION SOURCE (unrecogn ized section and content) DATE CREATED AUTHOR AUTHOR'S ORGANIZ ATION 11/24/2022 [facility] FOR RECORDS PERTAINING TO PATIENTS WHO ARE OR HAVE BEEN ENROLLED IN A CHEMICAL DEPENDENCY/SUBSTANCEABUSE PROGRAM, SOME INFORMATION MAY BE OMITTED. This clinical summary was aggregated from multiple sources. Caution should be exercised in using it in the provision of clinical care. This summary normalizes information from multiple sources, and as a consequence, information in this document may materially change the coding, format and clinical context of patient data. In addition, data may be omitted in some cases. CLINICAL DECISIONS SHOULD BE BASED ON THE PRIMARY CLINICAL RECORDS. [facility]. provides no warranty or guarantee of the accuracy or completeness of information in this document.
[2023-06-14 12:52] LABS: Hemoglobin A1c 5.8 % (3.8-5.6)
== END 2023-06-13 15:02 | disposition home or self-care (01) ==
LOC: MEDOUTP 15:04
PROVIDERS: PCP Family Medicine Geriatric Medicine; Referring Provider Family Medicine Geriatric Medicine; Visit Provider Family Medicine Geriatric Medicine
DX: E86.0 Dehydration (principal); E16.2 Hypoglycemia, unspecified
CPT/HCPCS: 96360; 80048; 83036; 85025; J7030

== ENCOUNTER 2023-06-14 09:29 | Outpatient (CLI) | payer OTHER, SELFPAY ==
[2023-06-14 09:32] VITALS: BP 133/73; PULSE 81; RESP 16; TEMP 35.9
[2023-06-14] MEDS: 0.9% NaCl Peripheral Flush Adult/Peds IV (09:40)
[2023-06-14] MEDS: 0.9% Normal Saline (1000mL) 1,000 ML 999 ML IV (10:01)
[2023-06-14 11:11] VITALS: BP 132/75; PULSE 70; RESP 16; TEMP 35.9; O2SAT 100
== END 2023-06-14 09:30 | disposition home or self-care (01) ==
LOC: MEDOUTP 09:29
PROVIDERS: PCP Family Medicine Geriatric Medicine; Referring Provider Family Medicine Geriatric Medicine; Visit Provider Family Medicine Geriatric Medicine
DX: E86.0 Dehydration (principal)
CPT/HCPCS: 96360; J7030; A4216

== ENCOUNTER → 2023-06-14 | Outpatient (CLI) | payer OTHER, SELFPAY ==
--- OUTSIDE RECORDS SUMMARY | 2023-06-14 09:23 | XMS RPT_ITS | CCD ---
Author Name Unknown Address [address] [place] [address] Organization [facility] Care Team Providers Care Collar Stay Fuser Tender Name Role Phone SAMEER GOODWIN, DR FREEMAN [...] Start: 07-30-2018 End: 07-31-[address] [facility] Payers Date Payer Category Payer Private Health Insurance [id number] 1960 Unknown [id number] Summary Purpose Family History No Family History Records FoundNo Family History Records Found Advance Directives No Advanced Directives Records FoundNo Advanced Directives Records Found Additional Source Comments INFORMATION SOURCE (unrecogn ized section and content) DATE CREATED AUTHOR AUTHOR'S ORGANIZ ATION 11/24/2022 [facility] [place] [place] FOR RECORDS PERTAINING TO PATIENTS WHO ARE [...] BE BASED ON THE PRIMARY CLINICAL RECORDS. [facility]. provides no warranty or guarantee of the accuracy or completeness of information in this document.
== END | disposition home or self-care (01) ==
LOC: PSN 09:00
PROVIDERS: PCP Family Medicine Geriatric Medicine; Referring Provider Family Medicine Geriatric Medicine; Visit Provider Family Medicine Geriatric Medicine
DX: R68.83 Chills (without fever) (principal)
CPT/HCPCS: 87631

== ENCOUNTER → 2023-12-19 | Outpatient (CLI) | payer OTHER, SELFPAY ==
--- NOTE | 2023-12-19 12:25 | BI_ITS ---
MAMMOGRAPHY - BILATERAL SCREENING REASON FOR EXAM: Female, 63 years old. Routine annual screening examination. PERTINENT HISTORY: Non-contributory. Remote left excisional breast biopsy. TECHNIQUE: Digital bilateral breast victorino (3D mammographic acquisition) in the CC and MLO projections. 2-D mediolateral oblique (MLO) and craniocaudad (CC) views of both breasts were obtained. CAD: Full Field Digital Mammography with Computer Added Detection was performed. COMPARISON: Comparison is made with prior study dated December 14, 2022 and November 23, 2021. FINDINGS: Breast Composition: The breasts are heterogeneously dense, which may obscure small masses. There are no dominant masses or suspicious calcifications. A tissue clip marker is seen in the upper deep lateral aspect of the left breast in keeping with prior biopsy. No other significant abnormalities are identified. There has been no significant change since the prior study. BI/SCRN MAMM (CAD)W/VICTORINO BILAT IMPRESSION: Stable bilateral screening mammogram. Yearly follow-up mammogram recommended. (A) ASSESSMENT CATEGORY: BIRADS Category 2: Benign. A letter regarding these results will be sent to the patient by the facility within 30 days. Approximately 10% of breast cancers are not detected by mammography. A normal mammogram should not delay biopsy of a clinically suspicious abnormality. [id number] Electronically Signed: Brijesh Barney MD at 13:38 EDT ,
== END | disposition home or self-care (01) ==
LOC: OPBI 12:22
PROVIDERS: PCP Family Medicine Geriatric Medicine; Referring Provider Obstetrics & Gynecology Gynecology; Visit Provider Obstetrics & Gynecology Gynecology
DX: Z01.419 Encounter for gynecological examination (general) (routine) without abnormal findings (principal); Z12.31 Encounter for screening mammogram for malignant neoplasm of breast
CPT/HCPCS: 77063; 77067

== ENCOUNTER → 2024-12-23 | Outpatient (CLI) | payer OTHER, SELFPAY | END | disposition home or self-care (01) | LOC: POLAB3 17:11 | PROVIDERS: PCP Family Medicine Geriatric Medicine; Visit Provider Family Medicine Geriatric Medicine | DX: G43.909 Migraine, unspecified, not intractable, without status migrainosus (principal); L03.221 Cellulitis of neck; R53.83 Other fatigue ==

== ENCOUNTER → 2025-01-09 | Outpatient (CLI) | payer OTHER, SELFPAY ==
--- NOTE | 2025-01-09 08:05 | BI_ITS ---
EXAM: SCRN MAMM (CAD)W/VICTORINO BILAT DATE: 01/09/2025 CLINICAL HISTORY: F, Age 64 y/o , SCREEN TECHNIQUE: Procedure Code: [id number] Modality: MG Procedure: SCRN MAMM (CAD)W/VICTORINO BILAT COMPARISON: Prior exam(s) dated 12/19/2023, 12/14/2022, 11/23/2021. FINDINGS: TISSUE DENSITY: The breasts are heterogeneously dense, which may obscure small masses. The mammogram demonstrates that the patient has dense breasts. Supplemental screening with whole breast ultrasound or MRI may be considered for further evaluation. Bilateral Breast Mammographic Findings: No significant masses, calcifications or other abnormalities are identified. BI/SCRN MAMM (CAD)W/VICTORINO BILAT IMPRESSION: There is no mammographic evidence of malignancy. OVERALL FINAL ASSESSMENT BI-RADS 1: NEGATIVE. RECOMMENDATION: Routine annual follow-up in 1 Year A letter with findings and recommendations will be mailed to the patient. Reading Location: [id number]
--- OUTSIDE RECORDS SUMMARY | 2025-01-09 08:25 | XMS RPT_ITS | CCD ---
Author Organization [facility] Care Team Providers Care Air C[employer] Agent Name Role Phone Dr. Delta Estrella Chi Primary Care Provider [phone] Dr. Umm Shaikh Attending Provider Dr. Chace Davidson Referring Provider SAMEER GOODWIN, DR FREEMAN Primary Care Unavailable ANDREY GOODWIN, KALANI Attending Patrick ESTRELLA MD, DR FREEMAN Primary Care Physician EMORY GOODWIN, LAILA Álvarez Attending Unavail able SAMEER GOODWIN, DR FREEMAN Primary Care Unavailable SAMEER GOODWIN, DR FREEMAN Primary Care Unavailable ANDREY GOODWIN, KALANI Attending Patrick Estrella MD, Dr. Delta Quick Primary Care Provider Sameer GOODWIN, Dr. Delta Quick Attending Provider Delta Estrella Chi Attending Delta Teixeira Chi Primary Care Unavailable Allergies Allergy Classification Reported Allergen(s) Allergy Type Date of Onset Reaction(s) Facility (11 sources) Doxycycline; Translations: [doxycycline] Drug Allergy 1 nausea and vomiting, projectile vomiting [facility] (2 sources) Meperidine; Translations: [meperidine] Drug Allergy rash [facility] (2 sources) seasonal enviromental Allergy to substance [facility] (1 source) Doxycycline Drug Allergy 4 [facility] Repository Medications Current Medications Medication Drug Class(es) Dates Sig (Normalized) Sig (Original) ergocalciferol 1.25 mg oral capsule (9 sources) Provitamin D2 Compound Start: 06-18-2020 Ergocalciferol (Vitamin D2) 50,000 UNIT capsule Active 81658 U PO Q7D June 18, 2020 1:00am Evenity 105 mg/1.17 mL subcutaneous solution (2 sources) Start: 12-19-2024 inject 1 dose by subcutaneous injection every month Evenity 105 mg/1.17 mL subcutaneous solution Dose : 210 mg =, Subcutaneous, qmonth, # 2.34 mL, 0 Refill(s) Start Date: 12/19/24 Status: Ordered Medication Dispense Status: Completed Quantity: 2.34 Unit: mL Total Allowed Fills: 1 Fills Dispensed: 0 famotidine 20 mg oral tablet (2 sources) Histamine-2 Receptor Antagonist Start: 11-20-2023 famotidine 20 mg oral tablet Dose : 20 mg = 1 tab(s), Oral, BID, # 180 tab(s), 0 Refill(s) Start Date: 11/20/23 Status: Ordered Medication Dispense Status: Completed Quantity: 180.0 Unit: tab(s) Total Allowed Fills: 1 Fills Dispensed: 0 glucosamine sulfate 500 mg oral tablet (4 sources) Start: 06-13-2023 take 1 tablet by mouth once daily Glucosamine Sulfate (Glucosamine) 500 mg tablet Active 500 mg PO DAILY June 13, 2023 1:00am administer with a meal ibuprofen 600 mg oral tablet (2 sources) Nonsteroidal Anti-inflammatory Drug Start: 12-17-2015 Motrin 600 mg oral tablet Dose : 600 mg = 1 tab(s), Oral, q6h, PRN as needed for pain, # 20 tab(s), 0 Refill(s) Start Date: 12/17/15 Status: Ordered Medication Dispense Status: Completed Quantity: 20.0 Unit: tab(s) Total Allowed Fills: 1 Fills Dispensed: 0 mecobalamin (3 sources) Start: 06-13-2023 inject 45257 ug by intramuscular injection every month Mecobalamin (Vitamin B12) Active 30249 MCG IM .monthly June 13, 2023 12:00am Mecobalamin (Vitamin B12) 10,000 mcg recon soln (1 source) Start: 06-13-2023 inject 23884 ug by intramuscular injection every month Mecobalamin (Vitamin B12) 10,000 mcg recon soln Active 78779 ug IM .monthly June 13, 2023 1:00am melatonin 5 mg oral tablet (2 sources) Start: 12-14-2015 melatonin 5 mg oral tablet Dose : 5 mg = 1 tab(s), Oral, qHS, PRN for insomnia, 0 Refill(s) Start Date: 12/14/15 Status: Ordered Medication Dispense Status: Completed Total Allowed Fills: 1 Fills Dispensed: 0 Multivitamin (Daily Multiple Vitamin) 1 EACH tablet (9 sources) Start: 02-02-2018 take 1 tablet by mouth once daily Multivitamin (Daily Multiple Vitamin) 1 EACH tablet Active 1 NMA PO DAILY February 02, 2018 12:00am Start: 02-02-2018 take 1 tablet by richie th once daily Multivitamin (Daily Multiple Vitamin) 1 EACH tablet Active 1 EACH PO DAILY February 01, 2018 11:00pm Start: 02-02-2018 take 1 tablet by richie th once daily Multivitamin (Daily Multiple Vitamin) 1 EACH tablet Active 1 EACH PO DAILY February 02, 2018 12:00am [employer]'s Daily Multivitamin (2 sources) Start: 12-14-2015 take 1 tablet by mouth once daily [employer]'s Daily Multivitamin 1 tab, Oral, qDay, 0 Refill(s) Start Date: 12/14/15 Status: Ordered Medication Dispense Status: Completed Total Allowed Fills: 1 Fills Dispensed: 0 omeprazole 40 mg delayed release oral capsule (4 sources) Proton Pump Inhibitor Start: 06-13-2023 Omeprazole 40 mg capsule,delayed release(DR/EC) Active 20 mg PO TWICE A DAY June 13, 2023 1:00am Start: 06-13-2023 take 20 mg by mouth twice sen y Omeprazole Active 20 MG PO TWICE A DAY June 13, 2023 12:00am vitamin b12 1 mg/ml injectable solution (2 sources) Vitamin B12 Start: 12-19-2024 cyanocobalamin 1000 mcg/mL injectable solution INJECT 1 ML ONCE A MONTH INJECTION Start Date: 12/19/24 Status: Ordered Medication Dispense Status: Completed Total Allowed Fills: 1 Fills Dispensed: 0 Completed/Discontinued Medications Medication Drug Class(es) Dates Sig (Normalized) Sig (Original) cyclobenzaprine hydrochloride 10 mg oral tablet (9 sources) Muscle Relaxant Start: 05-29-2020 End: 06-18-2020 take 1 tablet by mouth three times daily as needed for muscle spasms Cyclobenzaprine 10 MG tablet Discontinued 10 mg PO THREE TIMES A DAY as needed for Muscle Spasm 20 0 May 29, 2020 1:00am June 18, 2020 10:15am naproxen 500 mg oral tablet (20 sources) Nonsteroidal Anti-inflammatory Drug Start: 02-02-2018 End: 06-13-2023 take 1 tablet by mouth twice daily Naproxen 500 MG tablet Discontinued 500 mg PO TWICE A DAY June 18, 2020 1:00am June 13, 2023 4:25pm Problems Problem Classification Problem Date Documented Date Episodic/Chronic Disorders of lipid metabolism (2 sources) Hypercholesterolemia 12-14-2015 Chronic Esophageal disorders (2 sources) Gastroesophageal reflux disease 12-14-2015 Chronic Headache; including migraine (1 source) Migraine, unspecified, not intractable, without status migrainosus; Translations: [Migraine, unspecified, not intractable, without status migrainosus] Onset: 12-31-19 Chronic Headache; including migraine (1 source) Headache; Translations: [Headache, unspecified] Onset: 12-20-19 Episodic Headache; including migraine (1 source) Headache; including migraine; Translations: [Headache, unspecified] Onset: 12-20-19 Open wounds of extremities (9 sources) Open wound of lower leg with complication; Translations: [Unspecified open wound, right lower leg, subsequent encounter] 06-18-2020 Episodic Osteoporosis (2 sources) Osteoporosis 01-03-2023 Chronic Other and unspecified benign neoplasm (9 sources) Lipoma of back; Translations: [Benign lipomatous neoplasm of skin and subcutaneous tissue of trunk] 02-07-2021 Episodic Comment on above: s/p excision Other diseases of veins and lymphatics (8 sources) Chronic peripheral venous hypertension with lower extremity complication; Translations: [Chronic venous hypertension (idiopathic) with ulcer of right lower extremity] 07-09-2020 Chronic Other diseases of veins and lymphatics (1 source) Chronic peripheral venous hypertension; Translations: [Chronic venous hypertension (idiopathic) with ulcer of right lower extremity] 07-09-2020 Chronic Other diseases of veins and lymphatics (9 sources) Venous insufficiency of leg; Translations: [Venous insufficiency (chronic) (peripheral)] 07-02-2020 Episodic Other gastrointestinal disorders (2 sources) Irritable bowel syndrome 12-14-2015 Chronic Other screening for suspected conditions (not mental disorders or infectious disease) (2 sources) Encounter for screening for malignant neoplasm of cervix; Translations: [Encounter for screening for malignant neoplasm of cervix] Onset: 11-15-19 Episodic Results Test Name Value Interpretation Reference Range Facility Laboratory - Microbiology an d Antimicrobial susceptibilityOrdered By: Delta Estrella on 06-14-2023 SARS-CoV-2 (COVID-19) RNA RADHA+probe Ql (Unsp spec) [facility] Absolute lymphocyte countOrd ered By: Delta Estrella on 06-13-2023 Lymphocytes Auto (Unsp spec) [#/Vol] 2.33 10*3/uL 0.83-4.51 [facility] Automated lymphocyte count a s percentage of total leukocytesOrdered By: Delta Estrella on 06-13-2023 Lymphocytes/100 WBC Auto (Unsp spec) 41.8 % 19-41 [facility] Basophil percentageOrdered B y: Delta Estrella on 06-13-2023 Basophils/100 WBC (Bld) 0.7 % 0-1 [facility] Chloride [Moles/Vol] 108 mmol/L 98-107 [facility] Eosinophils/100 WBC (Bld) 2.0 % 0-5 [facility] Glucose [Mass/Vol] 147 mg/dL 74-106 [facility] Comment on above: Fasting Glucose resu lt greater than or equal to 126 mg/dL suggests DIABETES MELLITUS per A.D.A. criteria. Hemoglobin (Bld) [Mass/Vol] 12.7 g/dL 12.0-15.0 [facility] Monocytes/100 WBC (Bld) 5.2 % 0-10 [facility] Neutrophils (Bld) [#/Vol] 2.8 10*3/uL 2.0-7.7 [facility] Neutrophils/100 WBC (Bld) 49.9 % 47-70 [facility] Potassium [Moles/Vol] 3.9 mmol/L 3.5-5.[address] [facility] Sodium [Moles/Vol] 141 mmol/L 136-145 [facility] WBC (Bld) [#/Vol] 5.6 10*3/uL 4.4-11.0 [facility] Determination of erythrocyte mean corpuscular volume (MCV)Ordered By: Delta Estrella on 06-13-2023 MCV (RBC) [Entitic vol] 87.5 fL 81-99 [facility] Erythrocyte distribution wid th ratioOrdered By: Delta Estrella on 06-13-2023 Erythrocyte distribution width (RBC) [Ratio] 13.0 % 11.6-14.6 [facility] Erythrocyte distribution wid th standard deviationOrdered By: Delta Estrella on 06-13-2023 Erythrocyte distribution width (RBC) [Entitic vol] 41.1 fL 35.1-43.9 [facility] Hematocrit Auto (Bld) [Volum e fraction]Ordered By: Delta Estrella on 06-13-2023 Hematocrit (Bld) [Volume fraction] 40.0 % 37-47 [facility] Immature granulocytes/100 WB C Auto (Bld)Ordered By: Delta Estrella 06-13-2023 Immature granulocytes/100 WBC (Bld) 0.400 % 0.0-0.9 [facility] Comment on above: IG% - Immature Granu locytes (promyelocytes, myelocytes and metamyelocytes) > 1% indicates that a LEFT SHIFT is Present. Laboratory - Chemistry and C hemistry - challengeOrdered By: Delta Estrella 06-13-2023 CO2 [Moles/Vol] 28.0 mmol/L 21.0-32.0 [facility] Urea nitrogen/Creatinine [Mass ratio] 25.4 mg/mg 10-20 [facility] Laboratory - Hematology and Cell countsOrdered By: Delta Estrella 06-13-2023 MCH (RBC) [Entitic mass] 27.8 pg 27.0-32.0 [facility] MCHC (RBC) [Mass/Vol] 31.8 g/dL 32-[address] [facility] Nucleated RBC/100 WBC (Bld) [Ratio] 0 % 0-5 [facility] Platelet mean volume (Bld) [Entitic vol] 9.7 fL 6.2-12.0 [facility] Platelets (Bld) [#/Vol] 299 10*3/uL 150-450 [facility] No Panel InformationOrdered By: Delta Estrella on 06-13-2023 Estimated Creatinine Clearance Calc 63.34 ml/min [facility] Estimated GFR (MDRD) Amer 115 mL/min >60 [facility] Comment on above: GFR Calc Estimated GFR (MDRD) Non-Af Amer 95 mL/min >60 [facility] Comment on above: Non- GFR Calc RBC Auto (Bld) [#/Vol]Ordere d By: Delta Estrella on 06-13-2023 RBC (Bld) [#/Vol] 4.57 10*6/uL 4.2-5.4 [facility] Serum or plasma calcium greyson urement (mass/volume)Ordered By: Delta Estrella on 06-13-2023 Calcium [Mass/Vol] 9.1 mg/dL 8.5-10.1 [facility] Serum or plasma creatinine m easurement (mass/volume)Ordered By: Delta Estrella on 06-13-2023 Creatinine [Mass/Vol] 0.67 mg/dL 0.55-1.[address] [facility] Comment on above: The validity of the calculated GFR & GFRAA in patients over 70 years has not been determined. Clinical correlation is essential. Serum or plasma urea nitroge n measurement (mass/volume)Ordered By: Delta Estrella on 06-13-2023 Urea nitrogen [Mass/Vol] 17 mg/dL 7-18 [facility] Thin prep Papanicolaou smear with manual screeningOrdered By: Delta Estrella on 06-13-2023 Thin prep Papanicolaou smear with manual screening 5 5-15 [facility] Whole blood hemoglobin A1c/t otal hemoglobin ratio (mass fraction)Ordered By: Delta Estrella on 06-13-2023 HbA1c (Bld) [Mass fraction] 5.8 % 3.8-5.6 [facility] Comment on above: Normal < 5.7 % Predi abetic 5.7 - 6.4 % Diabetic >or= 6.5 % Please note range changes. [employer] Cytology Reporton 2022 [employer] Cytology Report . Pathology Reports Accession: Collected Date/Time: Received Date/Time: Pathologist: [id number] 11/14/2022 15:37 EDT 11/15/2022 18:00 EDT [employer] Cytology Report SPECIMEN: Specimen Description: Liquid Prep w/ HPV Specimen: Cervical/Endocervic al Screening or Diagnostic: Screening RELEVANT HISTORY: LMP: menopause SPECIMEN ADEQUACY: SATISFACTORY FOR EVALUATION LIMITED BY SCANT CELLULARITY Endocervical/Transf ormational zone component presence can not be determined due to marked atrophy INTERPRETATION/RESU LTS: NEGATIVE FOR INTRAEPITHELIAL LESION OR MALIGNANCY HIGH RISK HPV TESTING: Event Code Result HPV Interp See Interp HPVN HPV Interp Text: High Risk HPV Typing: NEGATIVE HPV types 16, 18, 31, 33, 35, 39, 45, 51, 52, 56, 58, 59, 66 and 68 DNA were undetectable or below the pre-set threshold. The juan miguel High-Risk HPV DNA Test is not intended for use as a screening device for Pap normal women under age 30 and is not intended to substitute for regular Pap screening. The juan miguel High-Risk HPV DNA Test is designed to augment existing methods for the detection of cervical disease and should be used in conjunction with clinical information derived from other diagnostic and screening tests, physical examinations and full medical history in accordance with appropriate patient management procedures. NOTE: A negative result does not preclude the presence of HPV infection because results depend on adequate specimen collection, absence of inhibitors and sufficient DNA to be detected. As of: 11/23/22 13:49 EDT COMMENT: This Pap Test was successfully processed and evaluated with the assistance of the [employer] Test Imaging System. Pathology Reports Accession: Collected Date/Time: Received Date/Time: Pathologist: [id number] 11/14/2022 15:37 EDT 11/15/2022 18:00 EDT Electronically Signed by Pathology report verified by [facility] Screened by: [place] Electronically signed by Tanika SANTOS (ASCP) Sign-Out Date: 11/23/2022 13:49 Performing Lab: [facility], [address] [place] [address] Pathology Dept Disclaimer The Pap test is a screening test for cervical cancer. As evidenced by published data, it is subject to both inherent false negative and false positive results. Your patient's results should be interpreted in context with pertinent clinical history including gynecological examination. Normal [facility] ([place]) HPVon 11-23-2022 HPV Interp Normal See Interp HPVN [facility] [place] Comment on above: Order Comment: Order placed by AP_HPV_ORDER rule from [id number] Result Comment: High Risk HPV Typing: NEGATIVE HPV types 16, 18, 31, 33, 35, 39, 45, 51, 52, 56, 58, 59, 66 and 68 DNA were undetectable or below the pre-set threshold. The juan miguel High-Risk HPV DNA Test is not intended for use as a screening device for Pap normal women under age 30 and is not intended to substitute for regular Pap screening. The juan miguel High-Risk HPV DNA Test is designed to augment existing methods for the detection of cervical disease and should be used in conjunction with clinical information derived from other diagnostic and screening tests, physical examinations and full medical history in accordance with appropriate patient management procedures. NOTE: A negative result does not preclude the presence of HPV infection because results depend on adequate specimen collection, absence of inhibitors and sufficient DNA to be detected. See Interp HPVN Performed By: #### H PV #### [place] [id number] HPV Source Cervix Normal [facility] ([place]) Comment on above: Order Comment: Order placed by AP_HPV_ORDER rule from [id number] Performed By: #### H PV #### [place] [address] COVID-19 virus antigen assay Ordered By: Dr. Estrella on 06-06-2022 SARS-CoV-2 (COVID-19) Ag IA.rapid Ql (Resp) Not detected Not Detect [facility] Comment on above: Normal Reference Ran ge: Not DetectedMethod:(RT-PCR) real-time reverse transcriptase PCRLuminex JOVANI Instrument*The Food and Drug Administration (FDA) has issued an Emergency Use Authorization (EAU) for the JOVANI SARS-CoV-2 Assay for the rapid detection of the virus that causes COVID-19. This test has been validated, but the FDAs independent review of this validation is pending.*Negative results do not preclude infection and should not be used as the sole basis for treatment or patient management. Optimum specimen types and timing for peak viral levels during infections caused by SARS-CoV-2 have not been determined. Collection of multiple specimens from the same patient may be necessary to detect the virus. The possibility of a false negative result should be considered if the patient has clinical presentation or has had recent exposure. No Panel InformationOrdered By: Dr. Estrella on 06-06-2022 Influenza Types A,B Direct FA (JORDAN) [facility] RSV Ag EIAOrdered By: Dr. Dasha cutler on 06-06-2022 RSV Ag Immune stain Ql (Tiss) [facility] Basophil percentageOrdered B y: Dr. Davidson on 03-02-2022 Chloride [Moles/Vol] 104 mmol/L 98-107 [facility] Glucose [Mass/Vol] 85 mg/dL 74-106 [facility] Potassium [Moles/Vol] 3.6 mmol/L 3.5-5.[address] [facility] Sodium [Moles/Vol] 138 mmol/L 136-145 [facility] WBC (Bld) [#/Vol] 4.5 10*3/uL 4.4-11.0 [facility] Blood erythrocytes count (nu mber/volume)Ordered By: Dr. Davidson on 03-02-2022 RBC (Bld) [#/Vol] 4.95 10*6/uL 4.2-5.4 [facility] Blood hemoglobin measurement (mass/volume)Ordered By: Dr. Davidson on 03-02-2022 Hemoglobin (Bld) [Mass/Vol] 14.2 g/dL 12.0-15.0 [facility] Blood platelet mean volumeOr dered By: Dr. Davidson on 03-02-2022 Platelet mean volume (Bld) [Entitic vol] 9.9 fL 6.2-12.0 [facility] Determination of erythrocyte mean corpuscular volume (MCV)Ordered By: Dr. Davidson on 03-02-2022 MCV (RBC) [Entitic vol] 87.9 fL 81-99 [facility] Hematocrit Auto (Bld) [Volum e fraction]Ordered By: Dr. Davidson on 03-02-2022 Hematocrit (Bld) [Volume fraction] 43.5 % 37-47 [facility] Laboratory - Chemistry and C hemistry - challengeOrdered By: Dr. Davidson on 03-02-2022 CO2 [Moles/Vol] 28.0 mmol/L 21.0-32.0 [facility] Urea nitrogen/Creatinine [Mass ratio] 26.6 mg/mg 10-20 [facility] Laboratory - Hematology and Cell countsOrdered By: Dr. Davidson on 03-02-2022 Erythrocyte distribution width (RBC) [Entitic vol] 41.5 fL 35.1-43.9 [facility] Erythrocyte distribution width (RBC) [Ratio] 12.9 % 11.6-14.6 [facility] MCH (RBC) [Entitic mass] 28.7 pg 27.0-32.0 [facility] MCHC Auto (RBC) [Mass/Vol]Or dered By: Dr. Davidson on 03-02-2022 MCHC (RBC) [Mass/Vol] 32.6 g/dL 32-[address] [facility] No Panel InformationOrdered By: Dr. Davidson on 03-02-2022 Estimated GFR (MDRD) Amer 141 mL/min >60 [facility] Comment on above: GFR Calc Estimated GFR (MDRD) Non-Af Amer 117 mL/min >60 [facility] Comment on above: Non- GFR Calc Platelets bldOrdered By: Dr. Davidson on 03-02-2022 Platelets (Bld) [#/Vol] 277 10*3/uL 150-450 [facility] Serum or plasma calcium greyson urement (mass/volume)Ordered By: Dr. Davidson on 03-02-2022 Calcium [Mass/Vol] 9.0 mg/dL 8.5-10.1 [facility] Serum or plasma creatinine m easurement (mass/volume)Ordered By: Dr. Davidson on 03-02-2022 Creatinine [Mass/Vol] 0.56 mg/dL 0.55-1.[address] [facility] Comment on above: The validity of the calculated GFR & GFRAA in patients over 70 years has not been determined. Clinical correlation is essential. Serum or plasma urea nitroge n measurement (mass/volume)Ordered By: Dr. Davidson on 03-02-2022 Urea nitrogen [Mass/Vol] 15 mg/dL 7-18 [facility] Thin prep Papanicolaou smear with manual screeningOrdered By: Dr. Davidson on 03-02-2022 Thin prep Papanicolaou smear with manual screening 6 5-15 [facility] CNOVon 07-30-2018 CNOV Office Visit ([facility]) ---- LARS CASILLAS ([id number]) 1960 F Date Time Provider Department 07/30/18 7:00 PM LAURA SANTANA) [facility] During your visit today, we recorded the following information about you: Temperature Pulse Respiration Blood pressure 98.4 degrees 90/minute 18/minute 122/80 Weight 51.4 kg Laura Santana PA-C 07/30/2018 8:16 PM Signed Subjective HPI Patient presents with left eye pain. She states she was at a calling [employer] when she had a piece of paper in her hand and she lifted her hand towards her face and she thinks she may have scratched her eye. It's very painful to open her eye and she feels like there is something may be in there. She feels like her vision is a little blurry as well. She also has had a cough over the past 3-4 days. She does have a history of asthma but really hasn't had an asthma flare and several years. She does not have an inhaler. No chest pain or shortness of breath. She does have some cough syrup that she has been using. Said some nasal congestion associated. Review of Systems Constitutional: Negative for chills and fever. HENT: Positive for congestion and sore throat. Eyes: Positive for blurred vision, pain and redness. Respiratory: Positive for cough. Negative for sputum production, shortness of breath and wheezing. Cardiovascular: Negative. Negative for chest pain. Skin: Negative. All other systems reviewed and are negative. PAST MEDICAL HISTORY Diagnosis Date - Migraine, unspecified, with intractable migraine, so stated, without mention of status migrainosus MIGRAINE HEADACHE - Mixed hyperlipidemia Hyperlipidemia - Unspecified asthma(493.90) Current Outpatient Medications: albuterol HFA (PROVENTIL HFA, VENTOLIN HFA) 90 mcg/actuation inhaler Inhale 2 Puffs as instructed every 6 hours as needed. Disp: 1 Inhaler Rfl: 0 erythromycin ophthalmic ointment Use 1 application in the left eye daily at bedtime. Disp: 1 Tube Rfl: 0 lovastatin(MEVACOR 40 MG TAB) Take one(1) tablet two(2) times daily. Disp: Rfl: 0 No current facility-administer ed medications for this visit. PAST SURGICAL HISTORY Procedure Laterality Date - DELIVERY ONLY 1982,1983,1985 , low cervical - LUMPECTOMY/RADIOTHE RAPY DIAG MAMM/A10 left breast - PAST SURGICAL HISTORY OF 2005 [employer] FAMILY HISTORY Problem Relation Age of Onset - Lipids Mother - Lipids Father - Breast Cancer Other cousin Social History Tobacco Use - Smoking status: Never Smoker Substance Use Topics - Alcohol use: No - Drug use: No BP 122/80 Pulse 90 Temp 36.9 ?C (98.4 ?F) (Tympanic) Resp 18 Wt 51.4 kg (113 lb 6.4 oz) Pulse ox 95% Objective Physical Exam Constitutional: She is oriented to person, place, and time and well-developed, well-nourished, and in no distress. HENT: Head: Normocephalic and atraumatic. Right Ear: Tympanic membrane, external ear and ear canal normal. Left Ear: Tympanic membrane, external ear and ear canal normal. Nose: Rhinorrhea present. Mouth/Throat: Uvula is midline, oropharynx is clear and moist and mucous membranes are normal. Eyes: Lids are everted and swept, no foreign bodies found. After tetracaine and fluorescein patient pain has resolved. I did view the eye under a black light and Patient has a corneal abrasion overlying the left pupil. No foreign bodies visualized. She is PERRLA and EOMI. Some mild injection of the sclera and tearing. Cardiovascular: Normal rate, regular rhythm and normal heart sounds. Pulmonary/Chest: Effort normal and breath sounds normal. No respiratory distress. She has no wheezes. She has no rales. Neurological: She is alert and oriented to person, place, and time. Skin: Skin is warm and dry. No rash noted. Psychiatric: Affect normal. Nursing note and vitals reviewed. ASSESSMENT/PLAN: 1. Abrasion of left cornea, initial encounter - ICD9: 918.1, ICD10: S05.02XA (primary diagnosis) Patient has an abrasion of the cornea. I did place her on antibiotic ointment. Discussed if it's not improving over the next 2-3 days to follow up with her last picker. She is agreeable to this plan. Patient had complete resolution of pain after the tetracaine. 2. Viral URI with cough - ICD9: 465.9, ICD10: J06.9, B97.89 - Discussed viral etiology and rationale for treatment. - Symptomatic treatment with prn analgesia - Supportive care with fluids and rest - Follow up in one week if symptoms persist or sooner if worsening of symptoms Laura Santana PA-C Referring Provider: SELF [200] Allergies As of Date: 07/30/2018 (No Known Allergies) Date Reviewed: 07/30/2018 Reviewed by: Ana Maria Srinivasan LPN - Fully Assessed Reason for Visit: Red Eye Left Eye [2910] Cmt: thinks she scratched it with a piece of paper about 1 hour ago and cough Primary Visit Diagnosis:Abrasion of left cornea, initial encounter [S05.02XA] Other Visit Diagnosis:Viral URI with cough [J06.9, B97.89] Order(s):albuterol HFA (PROVENTIL HFA, VENTOLIN HFA) 90 mcg/actuation inhalerInhale 2 Puffs as instructed every 6 hours as needed.Disp: 1 InhalerRfl: 0 erythromycin ophthalmic ointmentUse 1 application in the left eye daily at bedtime.Disp: 1 TubeRfl: 0 Prescriptions as of 07/30/2018 Sig: ALBUTEROL SULFATE HFA 90 MCG/* Inhale 2 Puffs as instructed * ERYTHROMYCIN 5 MG/GRAM (0.5 %* Use 1 application in the left* * MEVACOR 40 MG TABLET Take one(1) tablet two(2) blaine* Problem List As Of Date 07/30/2018 Noted Resolved Sprain and Strain of Unspecified Site of Foot [*INVALID FOR* Pain in Soft Tissues of Limb [M79.609] INVALID FOR* Prescriptions ordered this encounter Disp Refills Start End ALBUTEROL SULFATE HFA 90 MCG/ACTUATI* 1 In* 0 07/30/2018 Route: INHALATION Sig: Inhale 2 Puffs as instructed every 6 hours as needed. ERYTHROMYCIN 5 MG/GRAM (0.5 %) EYE O* 1 Tu* 0 07/30/2018 Route: LEFT EYE Sig: Use 1 application in the left eye daily at bedtime. Encounter Status:Closed by LAURA SANTANA PA-C on 07/30/18 [facility] PROGRESSon 07-30-2018 Protein mass conc HNO ID: [id number] Author: Laura Santana (Pa) Service: ? Author Type: Physician Search Director Type: Progress Notes Filed: 07/30/2018 8:16 PM Note Text: Subjective HPI Patient presents with left eye pain. She states she was at a calling our tonight when she had a piece of paper in her hand and she lifted her hand towards her face and she thinks she may have scratched her eye. It's very painful to open her eye and she feels like there is something may be in there. She feels like her vision is a little blurry as well. She also has had a cough over the past 3-4 days. She does have a history of asthma but really hasn't had an asthma flare and several years. She does not have an inhaler. No chest pain or shortness of breath. She does have some cough syrup that she has been using. Said some nasal congestion associated. Review of Systems Constitutional: Negative for chills and fever. HENT: Positive for congestion and sore throat. Eyes: Positive for blurred vision, pain and redness. Respiratory: Positive for cough. Negative for sputum production, shortness of breath and wheezing. Cardiovascular: Negative. Negative for chest pain. Skin: Negative. All other systems reviewed and are negative. PAST MEDICAL HISTORY Diagnosis Date - Migraine, unspecified, with intractable migraine, so stated, without mention of status migrainosus MIGRAINE HEADACHE - Mixed hyperlipidemia Hyperlipidemia - Unspecified asthma(493.90) Current Outpatient Medications: albuterol HFA (PROVENTIL HFA, VENTOLIN HFA) 90 mcg/actuation inhaler Inhale 2 Puffs as instructed every 6 hours as needed. Disp: 1 Inhaler Rfl: 0 erythromycin ophthalmic ointment Use 1 application in the left eye daily at bedtime. Disp: 1 Tube Rfl: 0 lovastatin(MEVACOR 40 MG TAB) Take one(1) tablet two(2) times daily. Disp: Rfl: 0 No current facility-administer ed medications for this visit. PAST SURGICAL HISTORY Procedure Laterality Date - DELIVERY ONLY 1982,1983,1985 , low cervical - LUMPECTOMY/RADIOTHE RAPY DIAG MAMM/A10 left breast - PAST SURGICAL HISTORY OF 2005 Thermoblation FAMILY HISTORY Problem Relation Age of Onset - Lipids Mother - Lipids Father - Breast Cancer Other cousin Social History Tobacco Use - Smoking status: Never Smoker Substance Use Topics - Alcohol use: No - Drug use: No BP 122/80 Pulse 90 Temp 36.9 ?C (98.4 ?F) (Tympanic) Resp 18 Wt 51.4 kg (113 lb 6.4 oz) Pulse ox 95% Objective Physical Exam Constitutional: She is oriented to person, place, and time and well-developed, well-nourished, and in no distress. HENT: Head: Normocephalic and atraumatic. Right Ear: Tympanic membrane, external ear and ear canal normal. Left Ear: Tympanic membrane, external ear and ear canal normal. Nose: Rhinorrhea present. Mouth/Throat: Uvula is midline, oropharynx is clear and moist and mucous membranes are normal. Eyes: Lids are everted and swept, no foreign bodies found. After tetracaine and fluorescein patient pain has resolved. I did view the eye under a black light and Patient has a corneal abrasion overlying the left pupil. No foreign bodies visualized. She is PERRLA and EOMI. Some mild injection of the sclera and tearing. Cardiovascular: Normal rate, regular rhythm and normal heart sounds. Pulmonary/Chest: Effort normal and breath sounds normal. No respiratory distress. She has no wheezes. She has no rales. Neurological: She is alert and oriented to person, place, and time. Skin: Skin is warm and dry. No rash noted. Psychiatric: Affect normal. Nursing note and vitals reviewed. ASSESSMENT/PLAN: 1. Abrasion of left cornea, initial encounter - ICD9: 918.1, ICD10: S05.02XA (primary diagnosis) Patient has an abrasion of the cornea. I did place her on antibiotic ointment. Discussed if it's not improving over the next 2-3 days to follow up with her last picker. She is agreeable to this plan. Patient had complete resolution of pain after the tetracaine. 2. Viral URI with cough - ICD9: 465.9, ICD10: J06.9, B97.89 - Discussed viral etiology and rationale for treatment. - Symptomatic treatment with prn analgesia - Supportive care with fluids and rest - Follow up in one week if symptoms persist or sooner if worsening of symptoms Laura Santana PA-C Normal [facility] Vital Signs Date Time Vital Sign Value Performing Clinician Stoney gillespie 06-14-2023 11:11-0500 Body temperature 96.7 [degF] [facility] 06-14-2023 11:11-0500 Diastolic blood pressure 75 mm[Hg] [facility] 06-14-2023 11:11-0500 Heart rate 70 /min [facility] 06-14-2023 11:11-0500 Respiratory rate 16 /min [facility] 06-14-2023 11:11-0500 SaO2% (BldA) [Mass fraction] 100 % [facility] 06-14-2023 11:11-0500 Systolic blood pressure 132 mm[Hg] [facility] 06-14-2023 09:32-0500 Body height 149.86 cm [facility] 06-13-2023 16:44-0500 Body temperature 97.2 [degF] [facility] 06-13-2023 16:44-0500 Diastolic blood pressure 80 mm[Hg] [facility] 06-13-2023 16:44-0500 Heart rate 87 /min [facility] 06-13-2023 16:44-0500 Respiratory rate 16 /min [facility] 06-13-2023 16:44-0500 SaO2% (BldA) [Mass fraction] 100 % [facility] 06-13-2023 16:44-0500 Systolic blood pressure 127 mm[Hg] [facility] 06-13-2023 15:18-0500 Body height 149.86 cm [facility] 06-13-2023 15:18-0500 Body mass index (BMI) [Ratio] 23.2 kg/m2 [facility] 06-13-2023 15:18-0500 Body weight 52.16 kg [facility] Encounters Encounter Date Encounter Type Care Provider Facility Start: 12-23-2024 End: 12-23-[address] Delta Estrella MD Work Phone: -[facility]rd Fl[facility] Start: 12-23-2024 End: 12-23-[address] Delta Estrella MD -Laboratory [facility]y [facility] 3rd Flr Start: 12-23-2024 End: 12-23-2024 ambulatory Delta Estrella Facility:[facility] Start: 12-19-2024 End: 12-19-2024 Emergency department patient visit LAILA CAT MD [facility] Start: 12-19-2024 End: 12-19-[address] LYDIA ESTRELLA MD Facility:[facility] Start: 12-19-2024 End: 12-19-2024 Patient encounter procedure KALANI BALDERAS MD [facility] Start: 06-14-2023 End: 06-14-2023 ambulatory [facility] Work Phone: Start: 06-14-2023 End: 06-14-2023 Patient encounter procedure [facility]-Medical Out Work Phone: Start: 06-13-2023 End: 06-13-2023 ambulatory [facility] Work Phone: Start: 06-13-2023 End: 06-13-2023 Patient encounter procedure [facility]-Medical Out Work Phone: Start: 12-14-2022 End: 12-14-2022 ambulatory [facility] Work Phone: Start: 12-14-2022 End: 12-14-2022 Patient encounter procedure [facility]-Outpatient Bone Densitometry Work Phone: Start: 11-14-2022 End: 11-19-[address] LYDIA ESTRELLA MD Facility:[facility] Start: 11-14-2022 End: 11-19-2022 Encounter for gynecological examination (general) (routine) without abnormal findings KALANI BALDERAS MD Facility:[facility] Start: 08-10-2022 End: 08-10-2022 Non-patient / Non-visit Dr. Delta Estrella Work Phone: [facility] Start: 08-10-2022 End: 08-10-[address] Delta Estrella Work Phone: [facility] Work Phone: Start: 08-10-2022 End: 08-10-[address] Delta Estrella Work Phone: [facility]-Pulmonary Services/Neurology Start: 06-06-2022 End: 06-06-2022 ambulatory [facility] Work Phone: Start: 06-06-2022 End: 06-06-2022 [facility] Start: 03-02-2022 End: 03-02-2022 ambulatory [facility] Work Phone: Start: 03-02-2022 End: 03-02-2022 [facility] Start: 11-23-2021 End: 11-23-2021 Patient encounter procedure [facility]-Outpatient Breast Imaging Start: 07-30-2018 End: 07-31-2018 Patient encounter procedure [facility] Procedures Date Procedure Procedure Detail Performing Clinician Start: 06-14-2023 SARS-CoV-2, Influenz a & RSV (PCR) Start: 12-14-2022 Dual energy X-ray absorptiometry Start: 12-14-2022 Screening mammography Start: 11-23-2021 Screening mammography Start: 04-30-2020 Excision of lipoma of back KALANI BALDERAS MD Cataract (disorder) KALANI MARIE MD Comment on above: bilateral section KALANI Flores MD Comment on above: with tubal ligation Colonoscopy KALANI BALDERAS MD Decompression of med emerald nerve KALANI BALDERAS MD Comment on above: Right Endometrial ablation using free heated saline KALANI BALDERAS MD Endoscopy KALANI BALDERAS MD Influenza Types A,B Direct FA (JORDAN) Ligation of fallopian tube Adriana BALDERAS MD Lumpectomy of breast KALANI BALDERAS MD Comment on above: Left Respiratory syncytia l virus antigen assay Plan of Treatment Date Care Activity Detail Author Start: 06-13-2023 Iv infusion hydratio n initial 31 min-1 hour HYDRATION IV INFUSION INIT [facility] Immunizations Immunization Date Immunization Notes Care Provider Adolfo johns 05-29-2020 tetanus toxoid, redu roberto diphtheria toxoid, and acellular pertussis vaccine, adsorbed [facility] Payers Date Payer Category Payer Self-pay [id number] 2024 Private Health Insurance [id number] 2024 Private Health Insurance [id number] 2011 Private Health Insurance [id number] 1960 Unknown [id number] 1960 Unknown [id number] 1960 Unknown [id number] [id number] Unknown . [id number] Unknown [id number] Social History Date Type Detail Facility Start: 01-28-2021 End: 01-28-2021 Tobacco smoking status NHIS Unknown if ever smoked [facility] Start: 06-18-2020 None [facility] Start: 06-18-2020 Spouse/ Signif icant Other [facility] Start: 07-29-2020 Non-smoker [facility] Start: 1960 Sex Assigned At Female W [facility] Start: 10-19-2020 End: 01-28-2021 Tobacco smoking status Never smoked tobacco (finding) [facility] Tobacco smoking status Ex-smoker (finding ) [facility] Sexual Orientation [facility] Start: 12-10-2015 Sex Female (finding) [facility] Mental Status Date Assessment Result Facility 06-14-2023 Cognitive function Awake;Alert;A ppropriate;Fol lows Commands [facility] Work Phone: 06-13-2023 Cognitive function Awake;Alert;A ppropriate;Fol lows Commands [facility] Work Phone: Hospital Discharge instructions 12-19-2024 Note Date & Type Note Facility 12-19-2024 Hospital Discharg e instructions Patient Education 12/19/2024 12:52:09 Headache, Tension Tension Headache A muscle tension headache is a very common cause of head pain. It s also called a stress headache. When some people are under stress, they tense the muscles of their shoulder, neck, and scalp without knowing it. If this tension lasts long enough, a headache can occur. A tension headache can be quite painful. It can last for hours or even days. Home care Follow these tips when caring for yourself at home: Don t drive yourself home if you were given pain medicine for your headache. Instead, have someone else drive you home. Try to sleep when you get home. You should feel much better when you wake up. Put heat on the back of your neck to help ease neck spasm. How to prevent tension-type headaches Figure out what is causing stress in your life. Learn new ways to handle your stress. Ideas include regular exercise, biofeedback, self-hypnosis, yoga, and meditation. Talk with your healthcare provider to find out more information about managing stress. Many books and digital media are also available on this subject. Take time out at the first sign of a tension headache, if possible. Take yourself out of the stressful situation. Find a quiet, comfortable place to sit or lie down and let yourself relax. Heat and deep massage of the tight areas in the neck and shoulders may help ease muscle spasm. You may also get relief from a medicine like ibuprofen or a prescribed muscle relaxant. Follow-up care Follow up with your healthcare provider, or as advised. Talk with your provider if you have frequent headaches. He or she can figure out a treatment plan. Ask if you can have medicine to take at home the next time you get a bad headache. This may keep you from having to visit the emergency department in the future. You may need to see a headache specialist (neurologist) if you continue to have headaches. When to seek medical advice Call your healthcare provider right away if any of these occur: Your head pain gets worse during sexual intercourse or strenuous activity Your head pain doesn t get better within 24 hours You aren t able to keep liquids down (repeated vomiting) Fever of 100.4 F (38 C) or higher, or as directed by your healthcare provider Stiff neck Extreme drowsiness, confusion, or fainting Dizziness or dizziness with spinning sensation (vertigo) Weakness in an arm or leg or one side of your face You have difficulty speaking Your vision changes 1155-[address] [employer] [place] [address]. All rights reserved. This information is not intended as a substitute for professional medical care. Always follow your healthcare professional's instructions. Follow Up Care 12/19/2024 11:32:12 With:LYDIA ESTRELLA MD Address: [facility] [address] [place] [address]- When:2-4 days [facility] Evaluation + Plan note 12-19-2024 Radiology Note Date & Type Note Facility 12-19-2024 Evaluation + Plan note Future Scheduled TestsMA Mammo Screening Bilateral w/ Samuel 12/19/24 [facility] Emergency department Discharge summary 12-19-2024 Note Date & Type Note Facility 12-19-2024 Emergency department Discharge summary Discharge Instructions Thank you for allowing [facility] to assist you with your healthcare needs. The following is important discharge information regarding your hospital visit. Diagnosis from Today's Visit Headache What to Do Next Instructions from Your Care Team No qualifying data available. Post Acute Orders No qualifying data available. You Need to Schedule the Following Appointments Follow Up with LYDIA ESTRELLA MD When:Within 2-4 days Where:[facility] [address] [place] [address]- Allergies Demerol HCl (Moderate) rash doxycycline projectile vomiting seasonal enviromental Medications Please ask your primary doctor or pharmacist before taking any other medication not listed, including over the counter drugs, herbal medications, vitamins and or supplements as they may interact with your home medications. What How Much When Instructions Last Dose Unchanged cyanocobalamin (cyanocobalamin 1000 mcg/ mL injectable solution) INJECT 1 ML ONCE A MONTH INJECTION Unchanged famotidine (famotidine 20 mg oral tablet) 1 tab(s) by mouth Two (2) times a day Unchanged ibuprofen (Motrin 600 mg oral tablet) 1 tab(s) by mouth Every 6 hours as needed for as needed for pain Unchanged melatonin (melatonin 5 mg oral tablet) 1 tab(s) by mouth Daily at bedtime as needed for for insomnia Unchanged multivitamin ([employer] BoCHARMS PPEC Women's Daily Multivitamin) 1 tab by mouth Once a day Unchanged romosozumab (Evenity 105 mg/ 1.17 mL subcutaneous solution) 210 Milligram Subcutaneous Once a month Please take this list to your next doctor s visit. Bring all medications you take, including over the counter medications, herbals and other supplements with you to your doctor s visit. Patients and families are reminded to discard old lists and to update any records with all medication providers or retail pharmacies. Education Materials Tension Headache A muscle tension headache is a very common cause of head pain. It s also called a stress headache. When some people are under stress, they tense the muscles of their shoulder, neck, and scalp without knowing it. If this tension lasts long enough, a headache can occur. A tension headache can be quite painful. It can last for hours or even days. Home care Follow these tips when caring for yourself at home: Don t drive yourself home if you were given pain medicine for your headache. Instead, have someone else drive you home. Try to sleep when you get home. You should feel much better when you wake up. Put heat on the back of your neck to help ease neck spasm. How to prevent tension-type headaches Figure out what is causing stress in your life. Learn new ways to handle your stress. Ideas include regular exercise, biofeedback, self-hypnosis, yoga, and meditation. Talk with your healthcare provider to find out more information about managing stress. Many books and digital media are also available on this subject. Take time out at the first sign of a tension headache, if possible. Take yourself out of the stressful situation. Find a quiet, comfortable place to sit or lie down and let yourself relax. Heat and deep massage of the tight areas in the neck and shoulders may help ease muscle spasm. You may also get relief from a medicine like ibuprofen or a prescribed muscle relaxant. Follow-up care Follow up with your healthcare provider, or as advised. Talk with your provider if you have frequent headaches. He or she can figure out a treatment plan. Ask if you can have medicine to take at home the next time you get a bad headache. This may keep you from having to visit the emergency department in the future. You may need to see a headache specialist (neurologist) if you continue to have headaches. When to seek medical advice Call your healthcare provider right away if any of these occur: Your head pain gets worse during sexual intercourse or strenuous activity Your head pain doesn t get better within 24 hours You aren t able to keep liquids down (repeated vomiting) Fever of 100.4 F (38 C) or higher, or as directed by your healthcare provider Stiff neck Extreme drowsiness, confusion, or fainting Dizziness or dizziness with spinning sensation (vertigo) Weakness in an arm or leg or one side of your face You have difficulty speaking Your vision changes 1533-[address]773 [employer]. [address] [place] [address]. All rights reserved. This information is not intended as a substitute for professional medical care. Always follow your healthcare professional's instructions. Additional Information VACCINATE! IT SAVES LIVES! Members of the community who have not yet received the COVID-19 vaccine and would like to receive it can visit one of [facility] vaccine clinics. There are many vaccine clinic locations within the [facility]. For locations and available times, please visit [email or web address] It is important to note that some COVID mobile vaccine clinics are held outdoors and may be canceled in rainy or stormy conditions. To learn more about pediatric vaccinations (ages 5-11), we invite you to visit the [facility] webpage. [email or web address] To learn more about the COVID-19 vaccine, we invite you to visit the CDC website for a list of frequently asked questions. https://www.cdc.gov/coronavirus/2 019-ncov/vaccines/faq.html [facility] Patient Portal Access Instructions: Stay connected with your healthcare team and access your personal medical information anytime with the [email or web address] Patient Portal. If you would like a full copy of your medical records please contact the [facility] Medical Records Department Sunday through Sunday between 8a.m. and 4:30p.m. Please follow the directions below to access the portal: 1.Access the email account you provided upon registration to the [facility].2.Look for an invitation email from [facility].3.Open the email and access the invitation link: Accept Invitation to [email or web address].Fill in the required webber to create your account. Sign into [email or web address] with your username and password that you created in the above steps to stay up to date. You can then view a summary of results, a summary of your visits, and the ability to download your summaries to your computer or send the information securely to a physician. Remember that your healthcare information is confidential, so carefully consider who you will allow to register on the [email or web address] Patient Portal for access to your information. You can also access the [email or web address] Patient Portal on the [employer] major. Simply click on Health Records under Health Data and then click on the [employer] logo. HOW TO SAFELY DISPOSE OF PRESCRIPTION MEDICATIONS Please use one of the following methods to safely dispose of your unused medications. 1.Use a drug disposal kit: the drug disposal pouch allows you to safely discard your old and unused drugs. Ask your nurse to give you one when you are discharged.2.Visit a local take-back location: Many local pharmacies and police departments have programs that collect old and unwanted prescription drugs. Call your local pharmacy or go to http://bit.Promobucket/4V3Xp4s to find one close to you.3.Make use of household items: Use cat litter or old coffee grounds to dispose medications if other options are not available. Mix your drugs with these household products, seal them in an airtight container and throw it into the garbage. Call [facility]: [phone] to be sure your drugs can be disposed of in this way. Some medicines may require a different approach.4.Never flush your medications down the toilet. IF YOU HAVE BEEN PRESCRIBED AN OPIOIDS FOR PAIN If you have been prescribed an opioid (such as hydrocodone, oxycodone or morphine), it is critical to understand the possible side effects and risks of opioid pain medications. Even when taken as directed, opioids can have several side effects including: Tolerance, meaning you might need to take more of a medication for the same pain relief. Nausea, vomiting and/or constipation. Sleepiness, dizziness, dry mouth, confusion, depression or itching. Physical dependence, meaning you have withdrawal symptoms when a medication is stopped ? this can develop within a few days. KNOW YOUR RESPONSIBILITIES It is important to know exactly how much and how often to take the opioid pain medications you are prescribed. Never take opioids in higher amounts or more often than prescribed. Do not combine opioids with alcohol or other drugs that cause drowsiness, such as benzodiazepines, also known as benzos, including diazepam and alprazolam, muscle relaxants or sleep aids. Never sell or share prescription opioids. This is illegal. Store opioids in a secure place and out of reach of others (including children, family, friends and visitors). The last page(s) of this document has been signed and retained as a CHART COPY Signatures Patient Education Materials Headache, Tension Medication Leaflets My discharge plan and instructions have been reviewed and explained to me and IVINNY SHERRY L understand my current condition and have read and understand these discharge instructions. I have received a written copy of the plan/instructions. If I have questions, I am aware that I should contact my doctor. 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: Date/Time: Relationship to Patient: ____ Witness Name/Signature: Date/Time: [facility] Evaluation note Note Date & Type Note Facility Evaluation note No assessment information availa ble [facility] Work Phone: Hospital course Narrative Note Date & Type Note Facility Hospital course Narrative No data available for this section [facility] Hospital Discharge instructions Note Date & Type Note Facility Hospital Discharge instructions No data available for this section [facility] Progress note Note Date & Type Note Facility Progress note No data available for this section [facility] Reason for referral (narrative) Note Date & Type Note Facility Reason for referral (narrative) No reason for referral information available [facility] Work Phone: Summary Purpose Family History No Family History Records Found Relationship Condition Age at Onset Recorded Date/T artis Unknown Family History?No pe rtinent history Unknown June 18, 2020 2:21pm Family History?No pe rtinent history Unknown June 18, 2020 2:21pm Relationship Condition Age at Onset Recorded Date/T artis Unknown Family History?No pe rtinent history Unknown June 18, 2020 1:21pm Family History?No pe rtinent history Unknown June 18, 2020 1:21pm Advance Directives No Advanced Directives Records Found Advance Directive Response Recorded Date/ Time Living Will No May 29 7:42pm Power of Janitorial Services Supervisor No May 29, 2020 7:42pm Advance Directive Response Recorded Date/ Time Living Will No May 29 6:42pm Power of Janitorial Services Supervisor No May 29, 2020 6:42pm Chief Complaint and Reason for Visit Chief Complaint SCREENING 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 Chief Complaint PREPROCEDURAL CHILLS WITHOUT FEVER Chief Complaint CHILLS WITHOUT FEVER PRE-OP EKG/LABWORK PREOP Chief Complaint SCREENING OSTEO Chief Complaint hydration Chief Complaint hydration CHILLS WITHOUT FEVER hydration Additional Source Comments INFORMATION SOURCE (unrecogn ized section and content) DATE CREATED AUTHOR 08/02/2018 [facility] DATE CREATED AUTHOR AUTHOR'S ORGANIZ ATION 11/24/2022 [facility] ([place] DATE CREATED AUTHOR AUTHOR'S ORGANIZ ATION 12/26/2024 [facility] DATE CREATED AUTHOR AUTHOR'S ORGANIZ ATION 12/31/2024 [facility] Goals (unrecognized section and content) Goals may be documented in a n alternate sectionGoals may be documented in an alternate sectionGoals may be documented in an alternate sectionGoals may be documented in an alternate sectionGoals may be documented in an alternate sectionGoals may be documented in an alternate sectionGoals may be documented in an alternate sectionGoals may be documented in an alternate section No data available for this section No data available for this sectionGoals may be documented in an alternate section Care Teams (unrecognized sec tion and content) Team Status: Active Member Role Status Dates Dr. Delta Estrella MD Family Provider Active Dr. Delta Estrella MD Primary Care Provider Active Team Status: Inactive Member Role Status Dates Dr. Delta Estrella MD Primary Care Provider Active Dr. Chace Davidson MD Attending Provider, Referring P chanelle Active Team Status: Inactive Member Role Status Dates Dr. Delta Estrella MD Primary Care Provi jackelin, Attending Provider, Referring Provider Active Team Status: Active Member Role Status Dates Dr. Delta Estrella MD Primary Care Provider Active Dr. Umm Shaikh MD Attending Provider Active Dr. Chace Davidson MD Referring Provider Active Team Status: Inactive Member Role Status Dates Dr. Delta Estrella MD Primary Care Provider Active Dr. Chace Davidson MD Attending Provider Active Team Status: Inactive Member Role Status Dates Dr. Delta Estrella MD Primary Care Provider Active Dr. Kalani Balderas MD Attending Provider, Referring Pr good Active Team Status: Active Member Role Status Dates Dr. Delta Estrella MD Primary Care Provi jackelin, Attending Provider, Referring Provider Active Team Status: Active Member Role/Relationship Status Dates Dr. Delta Estrella MD Family Provider Active Dr. Delta Estrella MD Primary Care Provider Active Team Status: Inactive Member Role/Relationship Status Dates Dr. Delta Estrella MD Primary Care Provider Active Start: December 23, 2024 End: December 23, 2024 Dr. Delta Estrella MD Attending Provider Active Start: December 23, 2024 End: December 23, 2024 FOR RECORDS PERTAINING TO PATIENTS WHO ARE [...] BE BASED ON THE PRIMARY CLINICAL RECORDS. [facility]. provides no warranty or guarantee of the accuracy or completeness of information in this document.
== END | disposition home or self-care (01) ==
LOC: OPBI 08:03
PROVIDERS: PCP Family Medicine Geriatric Medicine; Referring Provider Obstetrics & Gynecology Gynecology; Visit Provider Obstetrics & Gynecology Gynecology
DX: Z12.31 Encounter for screening mammogram for malignant neoplasm of breast (principal)
CPT/HCPCS: 77063; 77067

== ENCOUNTER → 2025-02-06 | Outpatient (CLI) | payer OTHER, SELFPAY | END | disposition home or self-care (01) | LOC: PSN 08:00 | PROVIDERS: PCP Family Medicine Geriatric Medicine; Referring Provider Family Medicine Geriatric Medicine; Visit Provider Family Medicine Geriatric Medicine | DX: R07.9 Chest pain, unspecified (principal) | CPT/HCPCS: 93005 ==